=== PATIENT | female | born 1960 | race Caucasian/White ===

== ENCOUNTER → 2017-05-28 16:47 | Outpatient (CLI) | payer OTHER, SELFPAY ==
--- NOTE | 2017-05-28 16:53 | RAD_ITS ---
STUDY: X-RAY - RIGHT SHOULDER REASON FOR EXAM: Female, 56 years old. TECHNIQUE: view(s) of the shoulder. COMPARISON: None. FINDINGS: Normal glenohumeral articulation. Normal acromioclavicular joint. Normal acromion. Normal humeral head and visualized proximal humerus. The soft tissue structures are unremarkable. Normal visualized pulmonary apex. RAD/Shoulder min 2 Views IMPRESSION: Normal x-ray examination of the shoulder. No fracture Electronically Signed: Donald Wick, at 7:15 EDT Tel , Service support ,
== END ==
PROVIDERS: Family Provider Family Medicine; PCP Family Medicine; Visit Provider Family Medicine
DX: M75.21 Bicipital tendinitis, right shoulder (principal)
CPT/HCPCS: 73030

== ENCOUNTER 2017-07-11 13:34 | Emergency (ER) | payer OTHER, SELFPAY ==
[2017-07-11 13:35] VITALS: BP 151/95; PULSE 106; RESP 20; TEMP 36.2; BMI 26.9
[2017-07-11] MEDS: DiphenhydrAMINE 50 MG/ML Syringe 25 MG IV (14:58)
[2017-07-11] MEDS: Ketorolac 30 MG/ML Syringe IV (15:00)
[2017-07-11] MEDS: 0.9% Normal Saline 1,000 ML 999 ML IV (15:02)
[2017-07-11] MEDS: Metoclopramide 10 MG/2 ML Vial IV (15:02)
--- NOTE | 2017-07-11 15:20 | ED.VISSUMM ---
- ER Visit Summary Date of Service: 07/11/17 Chief Complaint: Headache History of Present Illness: The patient is a 56 F with a history of migraines. Patient states her headaches have been well controlled recently with Topamax. Patient states she woke yesterday morning with a generalized headache that progressed throughout the day. Pain does seem to be worse just above the right eye. She has had light sensitivity, nausea, and vomiting. She denies any recent head injury. She has had no recent URI symptoms. Physical Examination: Blood pressure is 151/95, temperature 97.1, heart rate 106, respiratory rate 20. Patient sitting in a darkened room. She is in no acute distress but does appear uncomfortable. Head and neck examination is grossly unremarkable. There is no meningismus. Heart is regular rate and rhythm. Lung sounds are clear. Abdomen is soft nontender. Neuro exam reveals no focal deficits. Test Results: [] Emergency Department Course and Treatment: Patient treated Toradol, Reglan, Benadryl, and IV fluids. On repeat evaluation she initially reported minimal improvement. Offered another round of medications and a CT scan she declines. She states that her head was not really hurting that bad when she came in. She feels hungry. She is able to tolerate Sprite and cookies. Patient reportedly has Zofran ODT at home but was afraid to try them as 1 of the side effects listed on the drug insert is headaches. She will be encouraged to try this and I will also write her for Phenergan suppositories if needed. She states that if she can keep her nausea under control at home her other headache medicine does seem to help her significantly. At this time she would prefer to just go home and sleep as opposed to any further medications in the emergency room. Treatment Plan: [] Disposition: Discharge Impression: Migraine This note was generated with Intercom dictation software. It may contain incorrect words, spelling, and punctuation that were not noted in review of the chart prior to signing ED Disposition - Plan for ED Patient: Chief Complaint: Headache Referrals: Jeanette Luo DO [Primary Care Provider] -
--- NOTE | 2017-07-11 16:38 | ED.DEP ---
ED Disposition - Plan for ED Patient: Disposition: Home or Assisted Living Chief Complaint: Headache Instructions: ED Headache Migraine Prescriptions: proMETHazine suppository [Phenergan Suppository] 25 mg RECTAL Q6H PRN PRN #6 suppos. PRN Reason: Nausea Referrals: Jeanette Luo DO [Primary Care Provider] - 3-5 Days if not improving
--- NOTE | 2017-07-11 16:45 | ED.DEP ---
ED Disposition - Plan for ED Patient: Disposition: Home or Assisted Living Chief Complaint: Headache Instructions: ED Headache Migraine Prescriptions: proMETHazine suppository [Phenergan Suppository] 25 mg RECTAL Q6H PRN PRN #6 suppos. PRN Reason: Nausea Ondansetron [Zofran Odt] 4 mg PO Q8H PRN PRN #10 tab PRN Reason: Nausea Referrals: Jeanette Luo DO [Primary Care Provider] - 3-5 Days if not improving
[2017-07-11 16:57] VITALS: BP 168/82; PULSE 81; RESP 14; O2SAT 98
== END 2017-07-11 16:58 | disposition home or self-care (01) ==
PROVIDERS: Emergency Provider Emergency Medicine; Family Provider Family Medicine; PCP Family Medicine
DX: G43.909 Migraine, unspecified, not intractable, without status migrainosus (principal); I10 Essential (primary) hypertension; Z79.02 Long term (current) use of antithrombotics/antiplatelets; Z79.899 Other long term (current) drug therapy
CPT/HCPCS: 96361; 96374; 96375; 99285; J7030; A4216

== ENCOUNTER → 2017-12-04 07:16 | Outpatient (CLI) | payer OTHER, SELFPAY ==
--- NOTE | 2017-12-04 07:23 | MRI_ITS ---
STUDY: MRI RIGHT SHOULDER REASON FOR EXAM: Female, 57 years old. Right shoulder pain. Decreased range of motion. TECHNIQUE: Standardized fat and water weighted pulse sequences were obtained in all 3 orthogonal planes. COMPARISON: Radiographs/. FINDINGS: Images are degraded by motion. There is supraspinatus tendinosis with tendon thickening, but without a demonstrated full-thickness tendon tear. There may be longitudinal partial tears. Normal infraspinatus tendon. Normal subscapularis tendon. Normal teres minor tendon. Normal supraspinatus muscle. Normal infraspinatus muscle. Normal subscapularis muscle. Normal teres minor muscle. There is mild osteoarthritis of the glenohumeral articulation. There is a small shoulder effusion. Normal humeral head and visualized proximal humerus. Normal biceps labral complex. Normal intracapsular long biceps tendon. There is labral degeneration with areas of fraying, but there is no demonstrated discrete labral tear. Normal capsulo- ligamentous complex. Normal rotator interval. There is mild osteoarthritis of the acromioclavicular articulation. There is a Type II morphology (curved), with a neutral orientation. There is minimal fluid distention of the subacromial bursa, consistent with mild subacromial-subdeltoid bursitis. Normal visualized coracohumeral and coracoacromial ligaments. Normal quadrilateral space. Normal axillary space. Normal deltoid muscle. Normal trapezius muscle. MRI/Upper Ext Joint Only(Routine) IMPRESSION: No evidence of full-thickness rotator cuff tear. There is supraspinatus tendon thickening and abnormal signal consistent with tendinosis. Cannot exclude small partial-thickness longitudinal tears. Mild effusion. Mild glenohumeral and acromioclavicular joint osteoarthritis. Subacromial bursitis/synovitis. Electronically Signed: Jason Iniguez MD at 23:35 EDT , Service support ,
== END ==
PROVIDERS: Family Provider Family Medicine; PCP Family Medicine; Referring Provider Family Medicine; Visit Provider Family Medicine
DX: M67.921 Unspecified disorder of synovium and tendon, right upper arm (principal)
CPT/HCPCS: 73221

== ENCOUNTER → 2017-12-11 07:17 | Outpatient (CLI) | payer OTHER, SELFPAY ==
[2017-12-11 08:34] LABS: AST(SGOT) 14 U/L (15-37); Alanine Aminotransfer ALT/SGPT 30 U/L (13-56); Albumin, Serum 4.2 g/dL (3.2-5.0); Alkaline Phosphatase 79 U/L (45-117); Bilirubin, Direct 0.19 mg/dL (0.00-0.30); Cholesterol 142 mg/dL (200); Globulin 3.2 g/dL (2.2-4.2); High Density Lipoprotein 66 mg/dL; Protein, Total 7.4 g/dL (6.4-8.2); Triglycerides 77 mg/dL; Very Low Density Lipoprotein 15 mg/dL (5-40)
== END ==
PROVIDERS: Family Provider Family Medicine; PCP Family Medicine; Referring Provider Internal Medicine Cardiovascular Disease; Visit Provider Internal Medicine Cardiovascular Disease
DX: E78.5 Hyperlipidemia, unspecified (principal); I25.10 Atherosclerotic heart disease of native coronary artery without angina pectoris
CPT/HCPCS: 36415; 80061; 80076

== ENCOUNTER 2018-01-19 16:30 | Outpatient (RCR) | payer OTHER, SELFPAY ==
--- NOTE | 2018-01-03 16:55 | HP.PTEVAL_ITS ---
Patient's Visit Information OLIVA VARELA is a 57 year old F referred to Physical Therapy by Cash Gonzalez with a diagnosis of Frozen Shoulder Right. Date of Evaluation: 01/03/18 Physical Therapist: Elisa Newton - Visit Plan Frequency: 2-3x /Week Duration: 4 Weeks Plan: Focus on ROM- Heat prior to PT - Subjective Subjective: Patient reports that in May she started having pains Dr. Luo marketing administrative assistant gave her a steroid injection which helped for 3 months- pulled muscle and would heal on its own. Insidious onset. 3 months later she felt she needed another injection (August) due to pain. She had another one worked great- 3 months later she was in so much pain but her insurance would not okay an injection. Now its to the point where she can't lift her arm. So she went to see [facility]- they did and MRI and x-ray of the shoulder which showed mild OA- no muscle involvement- diagnosed with frozen shoulder. Shoulder does not hurt but the biceps hurts. Wakes her up at night. Eases: nothing Agg: at work putting her arm up on the table to sit and type- had them get her a lower desk to try to help change her work station. Worst: 10/10 Best: 6/10. Always has pain. Describes the pain as twisting, dull ache. No pain that goes past the elbow. Does have mild pain in the wrist. No neck pain but some pulling. N/T in the hands sometimes- No FLOREZ, blurred vision but has had some dizziness- does get migraines. Left hand dominate. 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 PMhx: migraines, HTN, NM from imitrex, stent. Meds: lysinopril, plavix, asprin, prevastatin. Topomax - Objective Posture: FH, RS- severe guarding of the right UE. Gait: decreased arm swing. Observation: can not touch her hand to her side pocket of her jeans. Palpation: tender along deltoid, biceps and triceps. ROM: AROM: flexion: 40 degrees abd: 50 degrees, IR: neutral, ER: neutral PROM: flexion: 100 degrees, abd: 90 degrees, IR: 20 degrees, ER: 20 degrees with severe pain. ELbow: WNL, Wrist: WNL, Finger dexterity: WNL. Strength: not tested secondary to pain. Special Test: not performed secondary to poor ROM and pain - Goals Goal 1:: Patient will be I with HEP and progression Goal Time Frame: 4-6 Weeks Goal 2:: Patient will demo full AROM of the right shoulder Goal Time Frame: 4-6 Weeks Goal 3:: Patient will maintain proper posture t/o tx session to demo increased scap s/s. Goal Time Frame: 4-6 Weeks Goal 4:: Patient will report sleeping through the night Goal Time Frame: 4-6 Weeks - Rehabilitation Potential Physical Therapy Diagnosis: Patient presents with hypomobility- she has decreased ROM, strength and muscular endurance leading to poor posture and increased pain with ADL's. Rehabilitation Potential: Fair - Anticipated Interventions Patient/Client Instruction: Educate patient on: Benefits of Fitness Program Therapeutic Exercise to Include: Strength training, Endurance training, Body mechanics, Postural training, Flexibilty training, Passive ROM, Active ROM, Scapular Strength/Stabilization For the Purpose of:: To increase ROM, To improve muscle performance and motor function TENS: Yes Cryotherapy (ice pack, ice massage): Yes Thermo therapy (hot pack): Yes Ultrasound (thermal/non thermal): Yes Thank you for the opportunity to evaluate your patient. For Medicare and Medicare HMO plans, please review the plan of care and approve it. It will need to be FAXED BACK to us at [phone] for Medicare purposes. Please let me know if there are questions or concerns regarding this plan of care. Physician Signature: Date:
--- NOTE | 2018-06-17 08:10 | HP.PTDCNRP_ITS ---
HP - Discharge Summary (1) - Patient Information OLIVA VARELA was seen in my office for initial evaluation on 01/03/18. The following Plan of Care was established for this patient: Initial Frequency: 2-3x /Week Initial Duration: 4 Weeks - Anticipated Interventions Patient/Client Instruction: Educate patient on: Benefits of Fitness Program Therapeutic Exercise to Include: Strength training, Endurance training, Body mechanics, Postural training, Flexibilty training, Passive ROM, Active ROM, Scapular Strength/Stabilization For the Purpose of:: To increase ROM, To improve muscle performance and motor function TENS: Yes Cryotherapy (ice pack, ice massage): Yes Thermo therapy (hot pack): Yes Ultrasound (thermal/non thermal): Yes This patient was last seen in our office . Pertinent comments regarding their Physical therapy will appear below: Patient has not attended physical therapy in over 30 days and is appropriate for discharge. Follow up with MD as appropriate. At this point I will be discontinuing this patient from physical therapy. I wo uld be happy to see this patient again in the future if found appropriate by the physician. Thank you! Elisa Newton DPT
== END 2018-01-19 19:00 | disposition home or self-care (01) ==
LOC: PT 16:30
PROVIDERS: Family Provider Family Medicine; PCP Family Medicine; Referring Provider Orthopaedic Surgery; Visit Provider Orthopaedic Surgery
DX: M75.01 Adhesive capsulitis of right shoulder (principal); M25.511 Pain in right shoulder; M17.11 Unilateral primary osteoarthritis, right knee
CPT/HCPCS: 97014; 97110; 97140; 97162; G0283

== ENCOUNTER → 2018-12-16 09:05 | Outpatient (CLI) | payer OTHER, SELFPAY ==
[2017-12-16 16:03] VITALS: BMI 26.9
[2018-12-16 10:08] LABS: AST(SGOT) 13 U/L (15-37); Alanine Aminotransfer ALT/SGPT 19 U/L (13-56); Albumin, Serum 3.9 g/dL (3.2-5.0); Alkaline Phosphatase 68 U/L (45-117); Bilirubin, Direct 0.18 mg/dL (0.00-0.30); Cholesterol 116 mg/dL (200); Globulin 2.8 g/dL (2.2-4.2); High Density Lipoprotein 54 mg/dL; Protein, Total 6.7 g/dL (6.4-8.2); Triglycerides 109 mg/dL; Very Low Density Lipoprotein 22 mg/dL (5-40)
== END ==
PROVIDERS: Family Provider Family Medicine; PCP Family Medicine; Referring Provider Physician Assistant Medical; Visit Provider Physician Assistant Medical
DX: E78.5 Hyperlipidemia, unspecified (principal)
CPT/HCPCS: 36415; 80061; 80076

== ENCOUNTER 2019-01-02 15:03 | Emergency (ER) | payer OTHER, SELFPAY ==
[2018-12-20 07:46] VITALS: BMI 25.2
[2019-01-02 15:05] VITALS: BP 145/100; PULSE 61; RESP 18; TEMP 36.8; O2SAT 95; BMI 25.2
--- NOTE | 2019-01-02 15:45 | ED.VIS.HA ---
History of Present Illness Chief Complaint: Headache Narrative: Patient presenting for evaluation secondary to a headache. Patient has a underlying history of migraine headaches. She is on Topamax for these for a daily controller medication, and has as needed Reglan and Toradol that she can take at home. Patient typically was getting these headaches about once a month, but recently has been getting them almost once weekly. She has had this headache since Wednesday. She reports that she typically wakes up with these headaches, this headache was no different. It is a generalized throbbing type sensation that was associated with significant nausea and vomiting over the weekend which has since resolved, and some photophobia and phonophobia. Patient denies recent head injuries, neck stiffness, skin rashes, or fevers. Review of systems otherwise negative. Past Medical History - Allergies and Home Meds Allergies/Adverse Reactions: Allergies prochlorperazine [From Compazine] Allergy (Verified 01/02/19 15:05) Other prochlorperazine edisylate [From Compazine] Allergy (Verified 01/02/19 15:05) Other prochlorperazine maleate [From Compazine] Allergy (Verified 01/02/19 15:05) Other Primary Care Physician: Jeanette Luo DO [Primary Care Provider] - Past Medical History: - - Migraine headaches, coronary artery disease Smoking Status: Never smoker Review of Systems All systems negative except as indicated General: Denies: Chills, Fever, Sweats Eyes: Denies: Visual changes - bilaterally ENT: Denies: Rhinorrhea, Sore throat Cardiovascular: Denies: Chest pain, Palpitations Respiratory: Denies: Dyspnea, Cough, Dyspnea on exertion Gastrointestinal: Reports: Nausea, Vomiting Genitourinary: Denies: Dysuria, Hematuria, Frequency Musculoskeletal: Denies: Back pain, Extremity Pain Skin: Denies: Rash, Wounds Neurological: Reports: Headache Physical Exam Vital Signs/Narrative: Vital Signs Temp Pulse Resp BP Pulse Ox 01/02/19 15:05 98.2 F 61 18 145/100 H 95 Inital Vital Signs reviewed: Yes General: Well nourished, Well developed Head: NC, AT. Negative for: Temporary Artery Tenderness, Sinus Tenderness Eyes: Perrl, EOMI. Negative for: Pale conjunctiva, Scleral icterus ENT: Moist mucous membranes, No rhinorrhea Neck: Supple, No Lymphadenopathy, No JVD, Nontender, No Meningismus Cardiovascular: Regular rate, Regular rhythm, No murmurs Respiratory: No distress, CTA bilaterally, Chest nontender Abdomen: Soft, Nontender, Nondistended, Normal bowel sounds Back: Nontender, Normal Inspection Extremities: Nontender, No edema Skin: Normal color, No rash Neuro: Alert, Oriented x3, Cranial nerves II-XII grossly intact, Normal Strength, Normal Sensation, Normal DTR, Normal Gait Psychological: Normal affect Diagnostic/Tx/Re-eval - Medical Decision Making Patient presented secondary to a migraine headache that was refractory to home treatments in the setting of having migraine headaches. She has no abnormal neurologic findings and no red flag signs or symptoms that would necessitate imaging. This does seem consistent with her normal migraines. Patient was discussed with Dr. Allen at her request. He did states that he feels the patient is okay for treatment with valproate and Solu-Medrol. Patient was given a liter of saline, Toradol, valproate, and Solu-Medrol. Throughout observation. In the emergency department, she did develop significant symptomatic improvement and repeat evaluation of the patient at 1750 shows her to have open eyes and to be improved symptomatically and objectively. At this point I feel the patient is safe and appropriate for discharge. Patient was discharged in improved condition. Disposition: Home ED Disposition - Plan for ED Patient: Disposition: Home or Assisted Living Diagnosis: Migraine headache Instructions: ED, Migraine (Classical) Referrals: Ricky Pacheco MD [STAFF PHYSICIAN] -
[2019-01-02] MEDS: 0.9% Normal Saline 1,000 ML 999 ML IV (15:57)
[2019-01-02] MEDS: MethylPREDNISolone 125 MG/2 ML Vial IV (15:57)
[2019-01-02] MEDS: Ketorolac 30 MG/ML Syringe IV (15:59)
[2019-01-02 18:11] VITALS: RESP 18
== END 2019-01-02 18:23 | disposition home or self-care (01) ==
PROVIDERS: Emergency Provider Emergency Medicine; Family Provider Family Medicine; PCP Family Medicine
DX: G43.909 Migraine, unspecified, not intractable, without status migrainosus (principal); I25.10 Atherosclerotic heart disease of native coronary artery without angina pectoris; Z79.899 Other long term (current) drug therapy; Z79.02 Long term (current) use of antithrombotics/antiplatelets; Z79.82 Long term (current) use of aspirin; Z88.8 Allergy status to other drugs, medicaments and biological substances
CPT/HCPCS: 96361; 96365; 96375; 99283; J7030; A4216

== ENCOUNTER → 2019-01-13 06:08 | Outpatient (CLI) | payer OTHER, SELFPAY ==
[2018-12-20 07:46] VITALS: BMI 25.2
[2019-01-02 15:05] VITALS: BMI 25.2
--- NOTE | 2019-01-13 10:11 | STRESSREP ---
Stress Test Report Exercise myocardial perfusion stress test. 58-year-old lady with a history of chest pain. Resting EKG demonstrates normal sinus rhythm with a rate of 64 bpm normal intervals noted resting blood pressures 124/90 mmHg. The patient exercised according to regular Quentin protocol for total duration of 6 minutes the maximum heart rate was 160 bpm which was 99% of maximum predicted heart rate the maximum workload was 7 metabolic equivalents. At rest there were no ST or T wave changes noted suggest ischemia peak exercise upsloping ST changes only were noted with no meet the criteria for ischemia. No clinical angina was noted the test was terminated due to the target heart rate being achieved. Resting blood pressures 124/90 with a peak blood pressure 152/94. Myocardial perfusion protocol. 11.0 mCi of technetium 99m sestamibi was injected at rest. Patient exercised according to regular Quentin protocol. At peak exercise 33.0 mCi of technetium 99m sestamibi was injected stress images obtained stress and rest images were reconstructed and compared in the short axis vertical and horizontal long axis. Gated images were also obtained per Perfusion SPECT analysis: Review of the stress images demonstrate normal uptake of tracer noted in all the rest of the myocardium the resting images similar demonstrate normal uptake of tracer noted in all the rest of the myocardium. No evidence of reversibility or no suggest ischemia. Gated SPECT analysis: The gated ejection fraction is noted to be 80%. Conclusion: Normal exercise myocardial perfusion stress test at a moderate workload. Preserved ejection fraction.
== END ==
PROVIDERS: Family Provider Family Medicine; PCP Family Medicine; Referring Provider Internal Medicine Cardiovascular Disease; Visit Provider Internal Medicine Cardiovascular Disease
DX: Z95.5 Presence of coronary angioplasty implant and graft (principal)
CPT/HCPCS: 78452; 93017; A9500; A4216

== ENCOUNTER → 2019-12-23 07:25 | Outpatient (CLI) | payer BC, SELFPAY ==
[2019-12-23 09:13] LABS: AST(SGOT) 13 U/L (15-37); Alanine Aminotransfer ALT/SGPT 23 U/L (13-56); Alkaline Phosphatase 81 U/L (45-117); Cholesterol 146 mg/dL (200); Globulin 3.2 g/dL (2.2-4.2); High Density Lipoprotein 76 mg/dL; Protein, Total 7.2 g/dL (6.4-8.2); Triglycerides 93 mg/dL; Very Low Density Lipoprotein 19 mg/dL (5-40)
== END ==
PROVIDERS: PCP Family Medicine; Referring Provider Physician Assistant Medical; Visit Provider Physician Assistant Medical
DX: E78.5 Hyperlipidemia, unspecified (principal)
CPT/HCPCS: 36415; 80061; 80076

== ENCOUNTER 2020-04-24 07:30 | Outpatient (RCR) | payer BC, SELFPAY ==
[2019-12-26 07:30] VITALS: BMI 25.9
--- NOTE | 2020-03-27 17:00 | HP.PTEVAL_ITS ---
Patient's Visit Information OLIVA VARELA is a 59 year old F referred to Physical Therapy by Dr. Jory Sher MD with a diagnosis of Frozen shoulder. Date of Evaluation: 03/27/20 Physical Therapist: Elisa Newton DPT - Visit Plan Frequency: 2x /Week Duration: 4 Weeks Plan: decreased ROM with empty end feel. PT to increase ROM and improve posture. IE HEP: cane flexion, ext, abduction ER, pendulum - Subjective L shoulder started hurting in December 2019, just thought it was heavy lifting from work. Went to [facility] last week. 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 L handed. pain: 4/10 and is in front shoulder/arm. is more painful along bicep to elbow, hurts more at night. feels like a bad bruise and throbbing, sometimes can be sharp. worst: 8/10 filing at work, overhead movement. better: does have 0/10, sitting with arm in right position resting on pillow, heat. denies numbness. some tingling in fingers. neck: could feel it in upper trap last week but does not feel that currently- if she overdoes it. sleep: throbbing pain at night , sleep on back. PMHx: stent, migraines, R frozen shoulder in 2018. Meds: none, tylenol if needed - Objective Posture: FH,RS unable to maintain. Gait: decreased arm swing with L UE, holding water bottle. Palpation: tender along infraspinatus. AROM Flexion: 95 after cane 125 abduction 60, after can 100 IR elbow: flex/ext:WFL. empty end feel with PROM scaption, flexion. PROM: flexion 125, abduction 125, ER 30 IR 8. 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 Scap: fair minus - Goals Goal 1:: Patient will be I with HEP and progression Goal Time Frame: 4-6 Weeks Goal 2:: Patient will demonstrate shoulder ROM in all planes to WFL in order to perform I ADLs. Goal Time Frame: 4-6 Weeks Goal 3:: Patient will report 0/10 pain for 1 week in order to improve I functional mobility Goal Time Frame: 4-6 Weeks Goal 4:: Patient will maintain proper posture throughout treatment session in order to perform I functional mobility Goal Time Frame: 4-6 Weeks - Rehabilitation Potential Physical Therapy Diagnosis: Pt presents with decreased ROM, strength, flexbility impacting ability to perform I functional mobility tasks. Rehabilitation Potential: Good - Anticipated Interventions Patient/Client Instruction: Educate patient on: Plan of Care For the Purpose of:: To improve muscle performance and motor function Therapeutic Exercise to Include: Strength training, Power training, Endurance training, Coordination, Agility training, Body mechanics, Postural training, Flexibilty training, Passive ROM, Active ROM, Scapular Strength/Stabilization For the Purpose of:: To improve performance and independence with ADL's TENS: Yes Cryotherapy (ice pack, ice massage): Yes Thermo therapy (hot pack): Yes Thank you for the opportunity to evaluate your patient. For Medicare and Medicare HMO plans, please review the plan of care and approve it. It will need to be FAXED BACK to us at [phone] for Medicare purposes. For Medicare only, by signing this I certify the plan of care. Please let me know if there are questions or concerns regarding this plan of care. Physician Signature: Date:
--- NOTE | 2020-04-24 10:18 | HP.PTDCSUM_ITS ---
It has been my pleasure to treat OLIVA VARELA referred by Dr. Jory Sher MD, with the diagnosis of Frozen shoulder for a total of 6 visit(s). Discharge Date: Please see the following information for a summary of their discharge status. Subjective: Pt reports that her shoulder is doing good. Pt reports the only limitation is functional IR. Pt reports that she has not had any pain. left shoulder Pain Intensity (Out of 10): 0 % Improvement: 80 Objective/Function: Posture: FH,RS unable to maintain. Gait: decreased arm swing with L UE, holding water bottle. Palpation: tender along infraspinatus. AROM Flexion: 130 abduction 120 IR: belt line elbow: flex/ext:WFL. 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 Scap: fair Goal 1:: Patient will be I with HEP and progression Goal Progress: Goal Met Goal 2:: Patient will demonstrate shoulder ROM in all planes to WFL in order to perform I ADLs. Goal Progress: Goal Met Goal 3:: Patient will report 0/10 pain for 1 week in order to improve I functional mobility Goal Progress: Goal Met Goal 4:: Patient will maintain proper posture throughout treatment session in order to perform I functional mobility Goal Progress: Progressing Plan: Pt to be d/c with I HEP, encouraged to contact with questions and concerns If there are questions or concerns regarding this patient's physical therapy, please feel free to call me at [phone]. Thank you for the referral of this patient. Sincerely, Elisa Newton DPT
== END 2020-04-24 10:43 | disposition home or self-care (01) ==
LOC: PT 07:30
PROVIDERS: PCP Family Medicine; Referring Provider Family Medicine; Visit Provider Family Medicine
DX: M67.912 Unspecified disorder of synovium and tendon, left shoulder (principal)
CPT/HCPCS: 97110; 97140; 97162; 97164; 97530

== ENCOUNTER 2020-09-17 19:08 | Emergency (ER) | payer BC, SELFPAY ==
[2019-12-26 07:30] VITALS: BMI 25.9
[2020-09-17 19:08] VITALS: BP 154/104; PULSE 111; RESP 20; TEMP 36; O2SAT 97; BMI 25.6
[2020-09-17] MEDS: Metoclopramide 10 MG/2 ML Vial IV (19:32)
[2020-09-17] MEDS: Ketorolac 30 MG/ML Syringe IV (19:32)
[2020-09-17] MEDS: DiphenhydrAMINE 50 MG/ML Syringe 25 MG IV (19:33)
--- NOTE | 2020-09-17 19:33 | EDS_ITS ---
HPI History of Present Illness Chief Complaint: Headache Informant: patient and spouse/S.O. Onset/Context/Timing Onset: Days (3 days) Context: Gradual Timing: Waxes and wanes Quality -Headache: Positive for Similar Prior Headaches and Throbbing Current Severity: Severe Maximum Severity: Severe Associated Symptoms/Injury Associated Symptoms: Positive for Nausea, Vomiting and Photophobia Narrative Narrative: Patient presents with 3-day history of migraine headache. states that she will get migraines it typically will last 3 days at a time. By day 3 she has such significant nausea and vomiting that she cannot keep her meds down at home. This headache started 3 days ago. It is worse in the frontal and right temporal region. This is a typical pattern for her migraines. She does r eport light sensitivity, nausea, and vomiting. No recent head injury. She does report a slight runny nose but no other URI symptoms. No fever or chills. [facility] Medical History (Updated 09/17/20 @ 21:[address] Patricia Mcmahon MD) Atherosclerotic heart disease of [place] coronary artery without angina pectoris Essential (primary) hypertension History of ST elevation myocardial infarction (STEMI) (01/11/11) HLD (hyperlipidemia) Migraines Home Medications lisinopril 40 mg PO DAILY 06/25/15 [History Last Taken Unknown] aspirin 81 mg tablet,delayed release 81 mg PO DAILY 12/20/18 [History Last Taken Unknown] clopidogrel 75 mg tablet 75 mg PO DAILY #90 tab 12/14/19 [Rx Last Taken Unknown] pravastatin 80 mg tablet 80 mg PO QHS #90 tab 12/26/19 [Rx Last Taken Unknown] topiramate 100 mg tablet 100 mg PO BID tab 12/26/19 [History Last Taken Unknown] Allergy/AdvReac Type Severity Reaction Status Date / Time prochlorperazine Allergy Other Verified 12/26/19 07:30 [From Compazine] prochlorperazine edisylate Allergy Other Verified 12/26/19 07:30 [From Compazine] prochlorperazine maleate Allergy Other Verified 12/26/19 07:30 [From Compazine] Family History Father Cancer Mother Colon cancer Surgical History History of coronary artery stent placement (01/11/11) History of hysterectomy Social History Smoking Status: Never smoker ROS ROS ED Constitutional Constitutional ED: Denies chills or fever(s) Eyes Eyes: Denies change in vision ENT ENT ED: Reports rhinorrhea; Denies sore throat Cardiovascular Cardiovascular: Denies chest pain Respiratory/Chest Respiratory/Chest: Denies cough or dyspnea Gastrointestinal Gastrointestinal: Reports nausea and vomiting; Denies abdominal pain or diarrhea Genitourinary Genitourinary ED: Denies dysuria Musculoskeletal Musculoskeletal: Denies back pain or neck pain Integumentary Denies rash Neurologic Neurologic: Reports headache(s); Denies paresthesias or weakness Psychiatric Psychiatric: Denies anxiety or depression Allergic/Immunologic Allergic/Immunologic ED: Denies urticaria EXAM Physical Exam Const Vital Signs: 09/17/20 19:08 09/17/20 20:51 Temperature 96.8 F L Temperature Source Temporal Pulse Rate 111 H 71 Respiratory Rate 20 H 16 Blood Pressure 154/104 H 157/91 H Blood Pressure Mean 120 113 Pulse Ox 97 99 Oxygen Delivery Method Room Air Positive well nourished and well developed General Appearance ED: well developed HEENT Reports normocephalic and head/scalp atraumatic Eyes PERRL and EOMs intact bilaterally Neck supple Chest Wall inspection of chest normal and palpation of chest normal Resp normal respiratory effort and clear to auscultation bilaterally Cardio regular rate and regular rhythm GI normal to inspection, nondistended, normoactive bowel sounds Palpation: soft Extremity normal to inspection Neuro oriented x3 and no sensory deficits noted Sensorium / Orientation: alert Motor Exam: strength 5/5 throughout Psych mental status grossly normal Skin no rashes or lesions noted MDM MDM MDM Narrative Medical decision making narrative: Patient was given Toradol, Reglan, Benadryl, IV fluids. Treatment and Re-Evaluation Comments:: On repeat evaluation patient states her headache is much improved. She is comfortable going home with her . Discharge Plan Triage Chief Complaint: Headache ED Provider: Patricia Mcmahon Dx/Rx/DC Orders Clinical Impression: Migraine Instructions: ED, Migraine (Classical) Prescriptions: No Action aspirin [Adult Low Dose Aspirin] 81 mg tablet,delayed release (DR/EC) 81 mg PO DAILY RF: 0 topiramate 100 mg tablet 100 mg PO BID RF: 0 pravastatin 80 mg tablet 80 mg PO QHS Qty: 90 RF: 4 lisinopril 40 MG tablet 40 mg PO DAILY RF: 0 clopidogrel 75 mg tablet 75 mg PO DAILY Qty: 90 RF: 3 Primary Care Provider: Jeanette Luo Referrals: Jeanette Luo DO [Primary Care Provider] - As Needed Disposition Disposition: Home, Self Care
[2020-09-17] MEDS: 0.9% Normal Saline 1,000 ML 999 ML IV (19:39)
[2020-09-17 20:51] VITALS: BP 157/91; PULSE 71; RESP 16; O2SAT 99
[2020-09-17 21:32] VITALS: BP 157/91; PULSE 71; RESP 16; O2SAT 99
== END 2020-09-17 21:33 | disposition home or self-care (01) ==
PROVIDERS: Emergency Provider Emergency Medicine; PCP Family Medicine
DX: G43.909 Migraine, unspecified, not intractable, without status migrainosus (principal); I25.10 Atherosclerotic heart disease of native coronary artery without angina pectoris; I10 Essential (primary) hypertension; E78.5 Hyperlipidemia, unspecified; Z79.02 Long term (current) use of antithrombotics/antiplatelets; Z79.82 Long term (current) use of aspirin; Z79.899 Other long term (current) drug therapy; I25.2 Old myocardial infarction; Z95.5 Presence of coronary angioplasty implant and graft
CPT/HCPCS: 96361; 96374; 96375; 99283; J7030; A4216

== ENCOUNTER → 2020-12-14 08:49 | Outpatient (CLI) | payer BC, SELFPAY ==
[2020-12-14 09:36] LABS: AST(SGOT) 18 U/L (15-37); Alanine Aminotransfer ALT/SGPT 23 U/L (13-56); Albumin, Serum 4.2 g/dL (3.2-5.0); Alkaline Phosphatase 80 U/L (45-117); Bilirubin, Direct 0.25 mg/dL (0.00-0.30); Cholesterol 152 mg/dL (200); Globulin 3.1 g/dL (2.2-4.2); High Density Lipoprotein 76 mg/dL; Protein, Total 7.3 g/dL (6.4-8.2); Triglycerides 81 mg/dL; Very Low Density Lipoprotein 16 mg/dL (5-40)
== END ==
PROVIDERS: PCP Family Medicine; Visit Provider Physician Assistant Medical
DX: E78.00 Pure hypercholesterolemia, unspecified (principal); E78.5 Hyperlipidemia, unspecified
CPT/HCPCS: 36415; 80061; 80076

== ENCOUNTER → 2021-12-17 | Outpatient (CLI) | payer BC, SELFPAY ==
[2021-12-17 07:34] LABS: AST(SGOT) 19 U/L (15-37); Alanine Aminotransfer ALT/SGPT 26 U/L (13-56); Albumin, Serum 4.3 g/dL (3.2-5.0); Alkaline Phosphatase 77 U/L (45-117); Bilirubin, Direct 0.27 mg/dL (0.00-0.30); Cholesterol 144 mg/dL (200); Globulin 3.1 g/dL (2.2-4.2); High Density Lipoprotein 75 mg/dL; Protein, Total 7.4 g/dL (6.4-8.2); Triglycerides 78 mg/dL; Very Low Density Lipoprotein 16 mg/dL (5-40)
== END | disposition home or self-care (01) ==
LOC: LAB 06:32
PROVIDERS: PCP Family Medicine; Referring Provider Physician Assistant Medical; Visit Provider Physician Assistant Medical
DX: E78.00 Pure hypercholesterolemia, unspecified (principal)
CPT/HCPCS: 36415; 80061; 80076

== ENCOUNTER → 2022-02-10 | Outpatient (CLI) | payer BC, SELFPAY ==
--- NOTE | 2022-02-10 16:08 | US_ITS ---
INDICATION: PELVIC PAIN- lower abd pain EXAMINATION: Ultrasound US Kidney(s) complete (eg, kidneys and bladder) TECHNIQUE: Milligan scale and color doppler images were obtained of the kidneys. COMPARISON: None. FINDINGS: RIGHT KIDNEY: 10.6 x 5.1 x 3.6 cm. There is no hydronephrosis. 0.8 x 1.0 x 0.6 cm echogenic upper pole nodule. LEFT KIDNEY: 9.7 x 4.8 x 6.1 cm. There is no hydronephrosis. No shadowing calculus, focal lesion or perinephric collection is demonstrated. URINARY BLADDER: No acute abnormality. Both urinary jets visualized. 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 Otherwise negative exam. Electronically Signed: Jayden Farrell MD at 16:49 EST ,
== END | disposition home or self-care (01) ==
LOC: US 16:04
PROVIDERS: PCP Family Medicine; Visit Provider Family Medicine
DX: R10.2 Pelvic and perineal pain (principal)
CPT/HCPCS: 76770

== ENCOUNTER 2022-02-13 20:38 | Emergency (ER) | payer BC, SELFPAY ==
[2022-02-13 20:39] VITALS: BP 138/99; PULSE 84; RESP 16; TEMP 36.4; O2SAT 100; BMI 25.7
[2022-02-13 21:06] LABS: Absolute Lymphocyte Count 1.87 X10^3/uL (0.83-4.51); Absolute Neutrophil Count 2.8 X10^3/uL (2.0-7.7); Basophil# 0.02 X10^3/uL; Basophil% 0.4 % (0-1); Eosinophil# 0.08 X10^3/uL; Eosinophils% 1.5 % (0-5); Hematocrit 41.7 % (37-47); Hemoglobin 14.2 g/dL (12.0-15.0); Lymphocyte # 1.87 X10^3/ul (0.83-4.51); Lymphocyte % 35.4 % (19-41); Mean Corp Hgb Conc 34.1 g/dL (32-36); Mean Corpuscular Hgb 31.8 pg (27.0-32.0); Mean Corpuscular Volume 93.5 fL (81-99); Mean Platelet Vol. 9.3 fl (6.2-12.0); Monocyte# 0.46 X10^3/uL; Monocyte% 8.7 % (0-10); NRBC Flagged by Analyzer 0 % (0-5); Neutrophil # 2.84 X10^3/uL (2.7-7.7); Neutrophil % 53.8 % (47-70); Platelet Count 270 K/mm3 (150-450); RBC Distribution Width CV 12.1 % (11.6-14.6); RBC Distribution Width SD 41.7 fl (35.1-43.9); Red Blood Count 4.46 M/mm3 (4.2-5.4); White Blood Count 5.3 K/mm3 (4.4-11.0)
[2022-02-13 21:25] LABS: Anion Gap 5 (5-15); BUN 9 mg/dL (7-18); BUN/Creat Ratio 13.7 RATIO (10-20); Calcium,Total 9.5 mg/dL (8.5-10.1); Chloride 112 mmol/L (98-107); Creatinine, Serum 0.66 mg/dL (0.55-1.02); EST Glomerular Filtration Rate 97 mL/min (>60); Est Glom Filt Rate - Afr Amer 118 mL/min (>60); Glucose 100 mg/dL (74-106); Potassium 3.1 mmol/L (3.5-5.1); Sodium Level 143 mmol/L (136-145)
--- NOTE | 2022-02-14 00:25 | CT_ITS ---
STUDY: CT ABDOMEN AND PELVIS WITH CONTRAST REASON FOR EXAM: Female, 61 years old patient with abdominal pain. RADIATION DOSAGE (If Supplied By Facility): CTDIvol = ( 9.41 ) mGy, DLP = ( 431.46 ) mGycm TECHNIQUE: Transaxial images were obtained from the dome of the diaphragm to the symphysis pubis without oral contrast. 75 mL of Isovue-370 was administered. Sagittal and coronal images were reconstructed. Individualized dose optimization techniques were used for this CT. COMPARISON: Prior comparison studies are not available for review at this time. FINDINGS: The visualized lung bases are unremarkable. The visualized portions of the heart are within normal limits. Normal liver. Normal gallbladder and extrahepatic biliary system. Normal spleen. Normal pancreas. Normal bilateral adrenal glands. Normal right kidney. Normal left kidney. Normal visualized stomach. There is no evidence for dilated bowel, ascites or pneumoperitoneum. Normal colon. There is non-visualization of the appendix. Normal abdominal aorta. There is venous distention of the inferior vena cava (IVC). Normal retroperitoneum. Normal urinary bladder. There is absence of the uterus consistent with a prior hysterectomy. Normal abdominal wall. There is narrowing of L5-S1 disc space consistent with degenerative disc disease. CT/Abdomen/Pelvis W IV Cont ONLY IMPRESSION: No CT evidence of acute abnormalities. Electronically Signed: Shaina Gonzalez MD at 1:41 EST ,
[2022-02-14 00:33] VITALS: RESP 18
[2022-02-14 00:40] LABS: Mucous, Urine 0 SEEN /hpf (<or=2+); Red Blood Cells-Urine 0 SEEN /hpf (0-5); Squamous Epithelial Cells - UA 0 SEEN /hpf (5-10); White Blood Cells 0 SEEN /hpf (0-5)
[2022-02-14 00:41] LABS: Color, Urine Yellow (Yellow); Glucose, Dipstick Normal (Normal); Ketone-Dipstick Negative (Negative); Leukocyte Esterase-Dipstick 25 /ul (Negative); Nitrite-Dipstick Negative (Negative); Occult Blood-Urine Negative /ul (Negative); Protein-Dipstick Negative (Negative); Urine Bilirubin Dipstick Negative (Negative); Urine Clarity Sl. Cloudy (Clear); Urine Urobilinogen Normal (Normal)
[2022-02-14] MEDS: 0.9% Normal Saline 1,000 ML 999 ML IV (00:41)
[2022-02-14 00:49] LABS: Amorphous Sediment 3+; Bacteria 1+ /hpf (None Seen)
--- NOTE | 2022-02-14 02:06 | EDS_ITS ---
HPI History of Present Illness Chief Complaint: Abd Pain Narrative Narrative: Patient is a 61-year-old female with a past medical history of hypertension and hyperlipidemia. She states she has been having lower abdominal pain for approximately 6 to 8 weeks. She states that she has been following up as an outpatient secondary to this. She reports that she had a recent ultrasound that showed a possible lesion on her kidney and they recommended she receive a CT scan. Patient states that her is doing waiting for CAT scan for multiple weeks and she is concerned that it will take just as long for her to have her scan. She states that she feels like the pain is worsened since the recent ultrasound and secondary to this comes in for evaluation. Patient denies any fevers or chills nausea vomiting diarrhea dysuria or constipation. [facility] Medical History Atherosclerotic heart disease of [place] coronary artery without angina pectoris Essential (primary) hypertension History of ST elevation myocardial infarction (STEMI) (01/11/11) HLD (hyperlipidemia) Migraines Home Medications lisinopril 40 mg tablet 40 mg PO DAILY 06/25/15 [History Last Taken Unknown] aspirin 81 mg tablet,delayed release (Adult Low Dose Aspirin) 81 mg PO DAILY 12/20/18 [History Last Taken Unknown] topiramate 100 mg tablet 100 mg PO BID 12/26/19 [History Last Taken Unknown] rimegepant 75 mg disintegrating tablet (Nurtec ODT) 75 mg PO ONCE PRN Migraine Headache 11/22/20 [History Last Taken Unknown] clopidogrel 75 mg tablet 75 mg PO DAILY #90 tabs 11/19/21 [Rx Last Taken Unknown] pravastatin 80 mg tablet 80 mg PO QHS #90 tabs 01/02/22 [Rx Last Taken Unknown] sulfamethoxazole 800 mg-trimethoprim 160 mg tablet (Bactrim DS) 1 tab PO BID 5 days #10 tabs 02/14/22 [Rx Last Taken Unknown] Allergy/AdvReac Type Severity Reaction Status Date / Time prochlorperazine Allergy Other Verified 02/14/22 00:34 [From Compazine] prochlorperazine edisylate Allergy Other Verified 02/14/22 00:34 [From Compazine] prochlorperazine maleate Allergy Other Verified 02/14/22 00:34 [From Compazine] Family History Father Cancer Mother Colon cancer Surgical History History of coronary artery stent placement (01/11/11) History of hysterectomy Social History Smoking Status: Never smoker ROS ROS ED Constitutional Constitutional ED: Denies chills or fever(s) Eyes Eyes: Denies change in vision ENT ENT ED: Denies sore throat Cardiovascular Cardiovascular: Denies chest pain Respiratory/Chest Respiratory/Chest: Denies cough or dyspnea Gastrointestinal Gastrointestinal: Reports abdominal pain; Denies diarrhea, nausea or vomiting Genitourinary Genitourinary ED: Denies dysuria or hematuria Musculoskeletal Musculoskeletal: Denies myalgias Integumentary Denies rash Neurologic Neurologic: Denies headache(s) Hematologic/Lymphatic Hematologic/Lymphatic: Denies easy bleeding or easy bruising EXAM Physical Exam Const Vital Signs: 02/13/22 20:39 02/14/22 00:33 02/14/22 02:12 Temperature 97.6 F L Temperature Source Temporal Pulse Rate 84 Respiratory Rate 16 18 18 Blood Pressure 138/99 H Blood Pressure Mean 112 Pulse Ox 100 Oxygen Delivery Method Room Air Room Air Room Air 02/14/22 02:12 Temperature Temperature Source Pulse Rate Respiratory Rate 18 Blood Pressure Blood Pressure Mean Pulse Ox Oxygen Delivery Method Positive well nourished and well developed General Appearance ED: well developed HEENT Reports moist mucous membranes Eyes PERRL and EOMs intact bilaterally General Eye ED: Negative for scleral icterus Neck supple Resp normal respiratory effort and clear to auscultation bilaterally Cardio regular rate and regular rhythm Rate: other Other Details: Radial pulses are plus 2 out of 4 bilaterally are equal and symmetric GI non-distended GI Narrative: Abdomen is soft and nondistended with normoactive bowel sounds. There is mild pain with palpation in the lower midline of the abdomen without voluntary guarding or rigidity. No pulsatile mass or fluid wave Auscultation: normoactive bowel sounds Palpation: soft Back/Spine no CVA tenderness Extremity normal to inspection Neuro oriented x3 and CN's II-XII intact bilaterally Sensorium / Orientation: alert Psych mental status grossly normal Skin no rashes or lesions noted General Skin Exam: Negative for jaundice MDM MDM MDM Narrative Medical decision making narrative: Patient presented to the ER hypertensive but has a past medical history of this and otherwise with stable vital. She reported a history of abdominal discomfort for 6 to 8 weeks. However she did report that it had been slightly worse in the last few days. Secondary to this I did elect to perform basic laboratory studies as well as a CT scan with IV contrast. CT scan revealed no acute findings and labs Clinically significant changes either. There was note of mild bacteria on the urine sample without contamination. Patient does not have frequency urgency or dysuria but based on this finding of bacteria in the urine and her increased abdominal pain in the lower mid abdomen/suprapubic region over the last few days I will send for culture and place her on a short round of antibiotic. However at this time as the overall work-up is negative for signs of systemic infection or overt intestinal abnormality she can be discharged home. Lab Data Attestation: I reviewed the patient's lab results. Labs: Laboratory Results - last 24 hr 02/13/22 02/13/22 02/14/22 20:56 20:56 00:30 WBC 5.3 RBC 4.46 Hgb 14.2 Hct 41.7 MCV 93.5 MCH 31.8 MCHC 34.1 RDW Std Deviation 41.7 RDW Coeff of Yesy 12.1 Plt Count 270 MPV 9.3 Immature Gran % (Auto) 0.200 Neut % (Auto) 53.8 Lymph % (Auto) 35.4 Mcdonald % (Auto) 8.7 Eos % (Auto) 1.5 Baso % (Auto) 0.4 Absolute Neuts (auto) 2.8 Absolute Lymphs (auto) 1.87 Nucleated RBC % 0 Sodium 143 Potassium 3.1 L Chloride 112 H Carbon Dioxide 26.0 Anion Gap 5 BUN 9 Creatinine 0.66 Estim Creat Clear Calc 69.90 Est GFR (MDRD) Af Amer 118 Est GFR (MDRD) Non-Af 97 BUN/Creatinine Ratio 13.7 Glucose 100 Calcium 9.5 Urine Color Yellow Urine Clarity Sl. Cloudy Urine pH 7.0 Ur Specific [place] 1.010 Urine Protein Negative Urine Glucose (UA) Normal Urine Ketones Negative Urine Occult Blood Negative Urine Nitrite Negative Urine Bilirubin Negative Urine Urobilinogen Normal Ur Leukocyte Esterase 25 H Urine RBC 0 SEEN Urine WBC 0 SEEN Ur Squamous Epith Cells 0 SEEN Amorphous Sediment 3+ Urine Bacteria 1+ Urine Mucus 0 SEEN Radiography Diagnostic Testing: Clinical Impression(s) from Imaging Studies Abdomen/Pelvis CT 02/14/22 00:25 IMPRESSION: No CT evidence of acute abnormalities. Electronically Signed: Shaina Gonzalez MD at 1:41 EST Reading Location ID and State: [address] [place] [address] , Service support , Discharge Plan Triage Chief Complaint: Abd Pain ED Provider: Riky Leal Dx/Rx/DC Orders Clinical Impression: Nonspecific abdominal pain, Urinary tract infection, Essential (primary) hypertension Instructions: Abdominal Pain, Urinary Tract Infections in Women Prescriptions: New sulfamethoxazole-trimethoprim [Bactrim DS] 800-160 mg tablet 1 tab PO BID 5 Days Qty: 10 0RF No Action aspirin [Adult Low Dose Aspirin] 81 mg tablet,delayed release (DR/EC) 81 mg PO DAILY topiramate 100 mg tablet 100 mg PO BID Label Comments: TAKE 1 TABLET BY MOUTH TWICE A DAY lisinopril 40 MG tablet 40 mg PO DAILY Nurtec ODT 75 mg tablet,disintegrating 75 mg PO ONCE PRN (Reason: Migraine Headache) Rx Instructions: as a single dose; not to exceed 1 dose per 24 hrs OR 15 doses per 30 days clopidogrel 75 mg tablet 75 mg PO DAILY Qty: 90 3RF pravastatin 80 mg tablet 80 mg PO QHS Qty: 90 4RF Primary Care Provider: Jeanette Luo Referrals: Jeanette Luo DO [Primary Care Provider] - Activity Restrictions/Additional Instructions: Your CT scan did not show any obvious intestinal pathology as a cause of your persistent abdominal pain therefore talk to your surgeon/gaming host about colonoscopy and/or EGD for further evaluation and return to the ER should you have any further concerns Disposition Disposition: Home, Self Care Discharge Date/Time: 02/14/22 02:23
[2022-02-14 02:12] VITALS: RESP 18
[2022-02-14] MEDS: Smz/Tmp Ds Tablet 1 TABLET PO (02:18)
== END 2022-02-14 02:23 | disposition home or self-care (01) ==
PROVIDERS: Emergency Provider Emergency Medicine; PCP Family Medicine; Visit Provider Emergency Medicine
DX: N39.0 Urinary tract infection, site not specified (principal); E78.5 Hyperlipidemia, unspecified; I25.10 Atherosclerotic heart disease of native coronary artery without angina pectoris; I10 Essential (primary) hypertension; R10.9 Unspecified abdominal pain
CPT/HCPCS: 74177; 80048; 81001; 85025; 87086; 96361; 96374; 96375; 99283; J7030; Q9967; A4216

== ENCOUNTER → 2022-12-12 | Outpatient (CLI) | payer BC, SELFPAY ==
[2022-12-12 10:55] LABS: AST(SGOT) 13 U/L (15-37); Alanine Aminotransfer ALT/SGPT 25 U/L (13-56); Albumin, Serum 3.9 g/dL (3.2-5.0); Alkaline Phosphatase 89 U/L (45-117); Bilirubin, Direct 0.24 mg/dL (0.00-0.30); Cholesterol 131 mg/dL (200); Globulin 3.1 g/dL (2.2-4.2); High Density Lipoprotein 67 mg/dL; Triglycerides 83 mg/dL; Very Low Density Lipoprotein 17 mg/dL (5-40)
== END | disposition home or self-care (01) ==
PROVIDERS: PCP Family Medicine; Referring Provider Physician Assistant Medical; Visit Provider Physician Assistant Medical
DX: E78.00 Pure hypercholesterolemia, unspecified (principal)
CPT/HCPCS: 36415; 80061; 80076

== ENCOUNTER → 2023-01-06 | Outpatient (CLI) | payer BC, SELFPAY ==
[2023-01-06 10:59] LABS: Anion Gap 3 (5-15); BUN 9 mg/dL (7-18); BUN/Creat Ratio 12.1 RATIO (10-20); Calcium,Total 9.2 mg/dL (8.5-10.1); Chloride 112 mmol/L (98-107); Creatinine, Serum 0.75 mg/dL (0.55-1.02); EST Glomerular Filtration Rate 83 mL/min (>60); Est Glom Filt Rate - Afr Amer 101 mL/min (>60); Glucose 107 mg/dL (74-106); Sodium Level 141 mmol/L (136-145)
== END | disposition home or self-care (01) ==
LOC: LAB 09:54
PROVIDERS: PCP Family Medicine; Referring Provider Physician Assistant Medical; Visit Provider Physician Assistant Medical
DX: I10 Essential (primary) hypertension (principal); E78.5 Hyperlipidemia, unspecified
CPT/HCPCS: 36415; 80048

== ENCOUNTER → 2023-03-19 | Outpatient (CLI) | payer BC, SELFPAY ==
[2023-03-19 18:08] LABS: Bacteria 0 SEEN /hpf (None Seen); Red Blood Cells-Urine 0 SEEN /hpf (0-5); Squamous Epithelial Cells - UA 0 SEEN /hpf (5-10); White Blood Cells 0 SEEN /hpf (0-5)
[2023-03-19 18:09] LABS: Mucous, Urine 0 SEEN /hpf (<or=2+)
[2023-03-19 18:20] LABS: Color, Urine Yellow (Yellow); Glucose, Dipstick Normal (Normal); Ketone-Dipstick Negative (Negative); Leukocyte Esterase-Dipstick Negative /ul (Negative); Nitrite-Dipstick Negative (Negative); Occult Blood-Urine Negative /ul (Negative); Protein-Dipstick Negative (Negative); Urine Bilirubin Dipstick Negative (Negative); Urine Clarity Clear (Clear); Urine Urobilinogen Normal (Normal)
--- OUTSIDE RECORDS SUMMARY | 2023-03-19 18:24 | XMS RPT_ITS | CCD ---
Author Name Unknown Address [address] [place] [address] Organization [facility] Care Team Providers Care Produce Specialist Name Role Phone Anya Christiansen Unavailable Unavailable Anya Christiansen Unavailable Unavailable MD Tiffany, Marcos Gallego Unavailable [facility] Nurse Unavailable Unavailable Malys DO, Jeanette A Primary Care Provider [phone] Malys DO, Ejanette A Primary Care Provider Malys DO, Jeanette A Primary Care Provider Malys, Jeanette A Primary Care Provider MALYS, JEANETTE Primary Care Unavailable GORDON PACHECO Attending Unavailable MALYS, JEANETTE Primary Care Unavailable GORDON PACHECO Attending Unavailable RUTH ELLIOTT Referring Unavailable MALYS, JEANETTE A Primary Care Unavailable RUTH ELLIOTT Attending Unavailable MALYS, JEANETTE A Primary Care Unavailable RUTH ELLIOTT Referring Unavailable MALYS, JEANETTE A Primary Care Unavailable Allergies Allergy Classification Reported Allergen(s) Allergy Type Date of Onset Reaction(s) Facility (4 sources) prochlorperazine Drug Allergy 06-06-19 16 Rash, N/V [employer] Work Phone: [phone] (8 sources) NKDA; Translations: [NKDA] allergy to substance 06-02-19 13 [employer] Work Phone: [phone] (11 sources) Acetaminophen / oxyCODONE; Translations: [OXYCODONE-ACETAMINO PHEN] Drug Allergy 04-27-19 09 [facility] Work Phone: (9 sources) Prochlorperazine; Translations: [PROCHLORPERAZINE EDISYLATE] Drug Allergy 03-23-19 06 [facility] Work Phone: (11 sources) SUMAtriptan; Translations: [SUMATRIPTAN] Drug Allergy 07-30-19 22 Other: See Comments, Other [facility] (2 sources) Prochlorperazine Drug Allergy 03-23-19 06 [facility] Medications Current Medications Medication Drug Class(es) Dates Sig (Normalized) Sig (Original) amoxicillin 875 mg oral tablet (1 source) Penicillin-class Antibacterial Start: 07-29-2021 End: 08-05-2021 take 1 tablet by mouth twice daily amoxicillin (AMOXIL) 875 mg tablet Take 1 tablet by mouth twice daily for 7 days. 14 tablet 0 07/29/2021 08/05/2021 Active Completed/Discontinued Medications Medication Drug Class(es) Dates Sig (Normalized) Sig (Original) ALPRAZolam 0.5 mg oral tablet (8 sources) Benzodiazepine Start: 09-15-2012 End: 12-19-2013 ALPRAZOLAM 0.5 MG TABS as needed ALPRAZOLAM [id number] Amber Nieto RN amitriptyline hydrochloride 50 mg oral tablet (8 sources) Tricyclic Antidepressant Start: 09-15-2012 End: 12-19-2013 take 1 tablet by mouth once daily AMITRIPTYLINE HCL 50 MG TABS One tablet by mouth daily AMITRIPTYLINE HCL [id number] Marcos Allen MD aspirin 81 mg oral tablet (20 sources) Nonsteroidal Anti-inflammatory Drug Start: 10-08-2011 take 1 tablet by mouth once daily ASPIRIN 81 MG TABS One tablet by mouth daily ASPIRIN [id number] Marcos Allen MD Problems Active Problems Problem Classification Problem Date Documented Da te Episodic/Chronic Abdominal pain (1 source) Lower abdominal pain; Translations: [Lower abdominal pain, unspecified] Episodic Acute myocardial infarction (4 sources) Myocardial infarction; Translations: [ST elevation (STEMI) myocardial infarction of unspecified site] Onset: 01-22-2011 01-22-2011 Chronic Coronary atherosclerosis and other heart disease (12 sources) Coronary arteriosclerosis; Translations: [Atherosclerotic heart disease of elem coronary artery without angina pectoris] Onset: 01-22-2011 01-22-2011 Chronic Disorders of lipid metabolism (4 sources) Hyperlipidemia; Translations: [Hyperlipidemia, unspecified] Onset: 01-22-2011 01-22-2011 Chronic Essential hypertension (4 sources) Hypertensive disorder; Translations: [Essential (primary) hypertension] Onset: 01-22-2011 01-22-2011 Chronic Headache; including migraine (11 sources) Migraine; Translations: [Migraine, unspecified, not intractable, without status migrainosus] Onset: 06-02-2012 06-02-2012 Chronic Menopausal disorders (10 sources) Atrophic vaginitis; Translations: [Postmenopausal atrophic vaginitis] Onset: 06-02-2012 06-02-2012 Chronic Nonmalignant breast conditions (2 sources) Breast finding ; Translations: [Dense breast tissue] 02-20-2022 Episodic Otitis media and related conditions (1 source) Acute left otitis media; Translations: [Otitis media, unspecified, left ear] Episodic Unclassified (8 sources) Long-term drug therapy; Translations: [Other extermination inspector (current) drug therapy] Onset: 01-22-2011 12-24-2015 Unclassified (4 sources) Screening mammography ; Translations: [Encounter for screening mammogram for malignant neoplasm of breast] Onset: 06-06-2015 06-06-2015 Unclassified (4 sources) Percutaneous transluminal coronary angioplasty ; Translations: [Coronary angioplasty status] Onset: 01-22-2011 01-22-2011 Past or Other Problems Problem Classification Problem Date Documented Da te Episodic/Chronic Other screening for suspected conditions (not mental disorders or infectious disease) (8 sources) Patient encounter status; Translations: [Encounter for screening mammogram for malignant neoplasm of breast] Onset: 02-20-2022 Episodic Results Test Name Value Interpretation Reference Range Facil ity Vital Signs Date Time Vital Sign Value Performing Clinician Facility 12-30-2022 07:57-0500 Body height 154.9 cm Ruth Elliott APRN.CNP Work Phone: [facility] 12-30-2022 07:57-0500 Body weight 66.68 kg Ruth Elliott APRN.CNP Work Phone: [facility] 12-30-2022 07:57-0500 Diastolic blood pressure 76 mm[Hg] Ruth Elliott APRN.CNP Work Phone: [facility] 12-30-2022 07:57-0500 Systolic blood pressure 118 mm[Hg] Ruth Elliott APRN.SEWER REPAIRER Work Phone: [facility] 12-17-2022 07:22-0400 Body height 157.5 cm Gordon Pacheco MD Work Phone: [facility] 12-17-2022 07:22-0400 Body mass index (BMI) [Ratio] 26.92 kg/m2 Gordon Pacheco MD Work Phone: [facility] 12-17-2022 07:22-0400 Body weight 66.77 kg Gordon Pacheco MD Work Phone: [facility] 12-17-2022 07:22-0400 Diastolic blood pressure 91 mm[Hg] Gordon Pacheco MD Work Phone: [facility] 12-17-2022 07:22-0400 Heart rate 81 /min Gordon Pacheco MD Work Phone: [facility] 12-17-2022 07:22-0400 Systolic blood pressure 143 mm[Hg] Gordon Pacheco MD Work Phone: [facility] 12-24-2021 07:33-0500 Body height 154.9 cm Ruth Elliott APRN.SEWER REPAIRER Work Phone: [facility] 12-24-2021 07:33-0500 Body weight 63.05 kg Ruth Elliott APRN.SEWER REPAIRER Work Phone: [facility] 12-24-2021 07:33-0500 Diastolic blood pressure 82 mm[Hg] Ruth Elliott APRN.SEWER REPAIRER Work Phone: [facility] 12-24-2021 07:33-0500 Systolic blood pressure 138 mm[Hg] Ruth Elliott APRN.SEWER REPAIRER Work Phone: [facility] 07-29-2021 08:14-0400 Body temperature 99.19 [degF] Abbie García APRN.SEWER REPAIRER Work Phone: [facility] 07-29-2021 08:14-0400 Body weight 63.5 kg Abbie García APRN.SEWER REPAIRER Work Phone: [facility] 07-29-2021 08:14-0400 Diastolic blood pressure 84 mm[Hg] Abbie García APRN.SEWER REPAIRER Work Phone: [facility] 07-29-2021 08:14-0400 Heart rate 76 /min Abbie García APRN.SEWER REPAIRER Work Phone: [facility] 07-29-2021 08:14-0400 Respiratory rate 16 /min Abbie García APRN.SEWER REPAIRER Work Phone: [facility] 07-29-2021 08:14-0400 SaO2% (BldA) [Mass fraction] 98 % Abbie García APRN.SEWER REPAIRER Work Phone: [facility] 07-29-2021 08:14-0400 Systolic blood pressure 132 mm[Hg] Abbie García APRN.SEWER REPAIRER Work Phone: [facility] 12-17-2016 08:45-0400 BMI (Body Mass Index) 29.63 kg/m2 [facility] Work Phone: 12-17-2016 08:45-0400 BP Diastolic 80 mm[Hg] [facility] Work Phone: 12-17-2016 08:45-0400 BP Systolic 130 mm[Hg] [facility] Work Phone: 12-17-2016 08:45-0400 Height 157.48 cm [facility] Work Phone: 12-17-2016 08:45-0400 Pulse (Heart Rate) 68 /min [facility] Work Phone: 12-17-2016 08:45-0400 Respiratory Rate 20 /min [facility] Work Phone: 12-17-2016 08:45-0400 Weight 73.48 kg [facility] Work Phone: 12-17-2015 09:13-0400 BSA (Body Surface Area) 1.74 m2 [facility] Work Phone: 06-06-2015 15:47-0400 Body Temperature 97.6 [degF] [facility] Work Phone: 06-01-2012 15:38-0400 Height 157.48 cm [facility] Work Phone: 06-01-2012 15:38-0400 Weight 50.91 kg [facility] Work Phone: Encounters Encounter Date Encounter Type Care Provider Facility Start: 12-30-2022 End: 12-30-2022 ambulatory RUTH ELLIOTT Facility:[facility] Start: 12-30-2022 End: 12-30-2022 Patient encounter procedure Ruth Elliott APRN.SEWER REPAIRER Work Phone: OB/Gynecology Procedures Date Procedure Procedure Detail Performing Clinician Start: 03-25-2022 Us breast uni real t yolanda with image limited Ruth Elliott APRN.SEWER REPAIRER Work Phone: Start: 02-20-2022 ROMAN SCREENING W ANABEL Am zohra Elliott APRN.SEWER REPAIRER Work Phone: Start: 02-20-2022 Mammography Mammograph y Coordinator Start: 12-24-2021 Urnls dip stick/tabl et rgnt auto w/o microscopy Ruth Elliott APRN.SEWER REPAIRER Work Phone: Start: 09-06-2018 Colonoscopy Abbie García APRN.SEWER REPAIRER Work Phone: Start: 04-19-2018 Mammography Abbie García APRN.SEWER REPAIRER Work Phone: Start: 12-17-2016 End: 12-18-2016 *Hepatic Function Panel Carlos Alberto Robins Start: 12-17-2016 End: 12-17-2016 STAMP COLLECTOR Marcos Allen MD Start: 12-17-2016 End: 12-17-2016 Follow Up Appt 1 year Marcos Allen MD Start: 12-17-2016 End: 12-18-2016 Lipid 1996 panel - Serum or Plasma Marcos Allen MD Start: 06-17-2016 End: 12-17-2016 *Hepatic Function Panel Carlos Alberto Robins Start: 06-17-2016 End: 12-17-2016 Lipid 1996 panel - Serum or Plasma Marcos Allen MD Start: 12-17-2015 End: 12-19-2015 *Hepatic Function Panel Carlos Alberto Robins Start: 12-17-2015 End: 12-17-2015 HUSAM Allen MD Start: 12-17-2015 End: 12-17-2015 Follow Up Appt 1 year Marcos Allen MD Start: 12-17-2015 End: 12-19-2015 Lipid 1996 panel - Serum or Plasma Marcos Allen MD Start: 12-18-2014 End: 12-18-2014 HUSAM Allen MD Start: 12-18-2014 End: 12-19-2014 Documentation of current medications Marcos Allen MD Start: 12-18-2014 End: 12-18-2014 Follow Up Appt 1 year Marcos Allen MD Start: 12-19-2013 End: 12-19-2013 HUSAM Allen MD Start: 12-19-2013 End: 12-19-2013 Follow Up Appt 1 year Marcos Allen MD Start: 12-20-2012 End: 12-20-2012 HUSAM Allen MD Start: 12-20-2012 End: 12-20-2012 Follow Up Appt 1 year Marcos Allen MD Start: 12-16-2012 End: 12-17-2016 *Hepatic Function Panel Joanne piña PA-C Work Phone: Start: 12-16-2012 End: 12-17-2016 Lipid 1996 panel - Serum or Plasma Joanne Dc PA-C Work Phone: Start: 06-01-2012 End: 06-20-2012 *Hepatic Function Panel Joanne piña PA-C Work Phone: Start: 06-01-2012 End: 06-01-2012 STAMP COLLECTOR Joanne Dc PA-C Work Phone: Start: 06-01-2012 End: 06-01-2012 Ecg routine ecg w/least 12 lds w/i&r Joanne Dc PA-C Work Phone: Start: 06-01-2012 End: 06-01-2012 Follow Up Appt 6 months Joanne piña PA-C Work Phone: Start: 06-01-2012 End: 06-20-2012 Lipid 1996 panel - Serum or Plasma Joanne Dc PA-C Work Phone: Start: 03-18-2012 End: 06-01-2012 *Hepatic Function Panel Carlos Alberto Robins Start: 03-18-2012 End: 06-01-2012 Lipid Kodi panel - Serum or Plasma Marcos Allen MD Start: 12-22-2011 End: 06-01-2012 Follow Up Appt 6 months Carlos Alberto Robins Start: 12-22-2011 End: 12-28-2011 Nuclear stress test -exercise Marcos Allen MD Start: 10-08-2011 End: 10-08-2011 Follow Up Appt 6 months Carlos Alberto Robins Start: 08-10-2011 End: 10-13-2011 *Hepatic Function Panel Carlos Alberto Robins Start: 08-10-2011 End: 10-13-2011 Lipid 1996 panel - Serum or Plasma Marcos Allen MD Start: 02-05-2011 End: 10-13-2011 *Hepatic Function Panel Carlos Alberto Robins Start: 02-05-2011 End: 04-30-2011 Cardiac Rehab Marcos Allen MD Start: 02-05-2011 End: 12-28-2011 Ecg routine ecg w/least 12 lds w/i&r Marcos Allen MD Start: 02-05-2011 End: 02-05-2011 Follow Up Appt 6 months Carlos Alberto Robins Start: 02-05-2011 End: 10-13-2011 Lipid 1996 panel - Serum or Plasma Marcos Allen MD Plan of Treatment Date Care Activity Detail Author Start: 09-07-2023 Colonoscopy COLONOSCOPY [facility] Start: 09-07-2023 COLORECTAL CANCER SCREENING COLORECTAL CANCER SCREENING [facility] Start: 07-27-2023 End: 07-27-2023 Patient encounter procedure 07/27/2023 9:00 AM EDT Office Visit [facility] [address] [place] [address] Gordon Pacheco MD [address] [place] [address] [facility] Start: 02-20-2023 Mammography [facility] Start: 10-28-2022 End: 10-28-2022 Patient encounter procedure 10/28/2022 8:00 AM EDT Office Visit [facility] [address] [place] [id number] Gordon Pacheco MD [address] [place] [address] [facility] Start: 10-16-2022 Covid-19 Vaccine ( season) Covid-19 Vaccine ( season) [facility] Start: 10-16-2022 Influenza vaccination Influenza Vaccine (#1) [facility] Start: 02-15-2022 DEPRESSION ASSESSMENT DEPRESSION ASSESSMENT [facility] Start: 01-21-2022 Shingrix Vaccine (2 of 2) Shingrix Vaccine (2 of 2) [facility] Start: 12-18-2021 LIPID SCREEN LIPID SCREEN [facility] Start: 12-17-2021 Lipid 1996 panel - Serum or Plasma Lipid Screening [facility] Start: 12-17-2021 Lipid panel Lipid Panel [facility] Start: 10-16-2021 Influenza vaccination [facility] Start: 02-15-2021 DEPRESSION ASSESSMENT DEPRESSION ASSESSMENT [facility] Start: 08-22-2020 COVID-19 VACCINE (2 - Booster for Mona series) COVID-19 VACCINE (2 - Booster for Mona series) [facility] Start: 2019 RSV Vaccine (1 - 1-dose 60+ series) RSV Vaccine (1 - 1-dose 60+ series) [facility] Start: 04-20-2019 Mammography MAMMOGRAM [facility] Start: 12-18-2017 Hepatitis B surface antibody level LDL CHOLESTEROL [facility] Start: 12-17-2017 Hepatitis B surface antibody level LDL Cholesterol [facility] Start: 12-16-2017 End: 12-16-2017 Appointment Appointment [facility] [employer] [facility] Work Phone: Start: 06-17-2017 End: 12-18-2016 *Hepatic Function Panel *Hepatic Function Panel [facility] Work Phone: Start: 06-17-2017 End: 12-18-2016 Lipid panel [AGGREGATE] *Lipid Profile CC PCP [email or web address] Work Phone: Start: 12-17-2016 End: 12-18-2016 *Hepatic Function Panel *Hepatic Function Panel [email or web address] [employer] Work Phone: Start: 12-17-2016 End: 12-17-2016 STAMP COLLECTOR STAMP COLLECTOR [email or web address] Work Phone: Start: 12-17-2016 End: 12-17-2016 Follow Up Appt 1 year Follow Up Appt 1 year [facility] Work Phone: Start: 12-17-2016 End: 12-18-2016 Lipid panel [AGGREGATE] *Lipid Profile CC PCP [facility] Work Phone: Start: 06-17-2016 End: 12-17-2016 *Hepatic Function Panel *Hepatic Function Panel [facility] Work Phone: Start: 06-17-2016 End: 12-17-2016 Lipid panel [AGGREGATE] *Lipid Profile CC PCP [facility] Work Phone: Start: 12-17-2015 End: 12-19-2015 *Hepatic Function Panel *Hepatic Function Panel [facility] Work Phone: Start: 12-17-2015 End: 12-17-2015 STAMP COLLECTOR STAMP COLLECTOR [facility] Work Phone: Start: 12-17-2015 End: 12-17-2015 Follow Up Appt 1 year Follow Up Appt 1 year [facility] Work Phone: Start: 12-17-2015 End: 12-19-2015 Lipid panel [AGGREGATE] *Lipid Profile CC PCP [facility] Work Phone: Start: 06-06-2015 End: 06-06-2015 Mammogram, screening Mammogram, Screening, both breasts [facility] Work Phone: Start: 12-18-2014 End: 12-18-2014 STAMP COLLECTOR STAMP COLLECTOR [facility] Work Phone: Start: 12-18-2014 End: 12-18-2014 Follow Up Appt 1 year Follow Up Appt 1 year [facility] Work Phone: Start: 12-19-2013 End: 12-19-2013 STAMP COLLECTOR STAMP COLLECTOR [facility] Work Phone: Start: 12-19-2013 End: 12-19-2013 Follow Up Appt 1 year Follow Up Appt 1 year [facility] Work Phone: Start: 12-20-2012 End: 12-20-2012 STAMP COLLECTOR STAMP COLLECTOR [facility] Work Phone: Start: 12-20-2012 End: 12-20-2012 Follow Up Appt 1 year Follow Up Appt 1 year [facility] Work Phone: Start: 12-16-2012 End: 12-17-2016 *Hepatic Function Panel *Hepatic Function Panel [facility] Work Phone: Start: 12-16-2012 End: 12-17-2016 Lipid panel [AGGREGATE] *Lipid Profile [facility] Work Phone: Start: 06-01-2012 End: 06-20-2012 *Hepatic Function Panel *Hepatic Function Panel [facility] Work Phone: Start: 06-01-2012 End: 06-01-2012 STAMP COLLECTOR STAMP COLLECTOR [facility] Work Phone: Start: 06-01-2012 End: 06-01-2012 Ecg routine ecg w/least 12 lds w/i&r EKG (In office) [facility] Work Phone: Start: 06-01-2012 End: 06-01-2012 Follow Up Appt 6 months Follow Up Appt 6 months [facility] Work Phone: Start: 06-01-2012 End: 06-20-2012 Lipid panel [AGGREGATE] *Lipid Profile [facility] Work Phone: Start: 04-07-2012 DIABETES SCREEN DIABETES SCREEN [facility] Start: 04-07-2012 Diabetes Screening Diabetes Screening [facility] Start: 03-18-2012 End: 06-01-2012 *Hepatic Function Panel *Hepatic Function Panel [facility] Work Phone: Start: 03-18-2012 End: 06-01-2012 Lipid panel [AGGREGATE] *Lipid Profile [facility] Work Phone: Start: 12-22-2011 End: 06-01-2012 Follow Up Appt 6 months Follow Up Appt 6 months [facility] Work Phone: Start: 12-22-2011 End: 12-22-2011 Nuclear stress test -exercise Nuclear stress test -exercise [facility] Phone: Start: 10-08-2011 End: 10-08-2011 Follow Up Appt 6 months Follow Up Appt 6 months [facility] [employer] Phone: Start: 08-10-2011 End: 10-13-2011 *Hepatic Function Panel *Hepatic Function Panel [facility] Work Phone: Start: 08-10-2011 End: 10-13-2011 Lipid panel [AGGREGATE] *Lipid Profile [facility] Work Phone: Start: 02-05-2011 End: 10-13-2011 *Hepatic Function Panel *Hepatic Function Panel [facility] Work Phone: Start: 02-05-2011 End: 12-28-2011 Cardiac Rehab Cardiac Rehab [facility] [employer] Phone: Start: 02-05-2011 End: 12-28-2011 Ecg routine ecg w/least 12 lds w/i&r EKG (In office) [facility] Work Phone: Start: 02-05-2011 End: 02-05-2011 Follow Up Appt 6 months Follow Up Appt 6 months [facility] Work Phone: Start: 02-05-2011 End: 10-13-2011 Lipid panel [AGGREGATE] *Lipid Profile [facility] Work Phone: Start: 10-30-2009 SHINGRIX VACCINE (1 of 2) SHINGRIX VACCINE (1 of 2) [facility] Start: 10-30-2004 COLOGUARD (FIT-DNA) COLOGUARD (FIT-DNA) [facility] Start: 10-30-[address] COLONOGRAPHY [facility] Start: 10-30-2004 FECAL OCCULT BLOOD FECAL OCCULT BLOOD [facility] Start: 10-30-2004 SIGMOIDOSCOPY SIGMOIDOSCOPY [facility] Start: 1999 Screening for malignant neoplasm of breast Mammogram [facility] Start: 10-30-1989 Screening for malignant neoplasm of cervix [facility] Start: 10-30-1980 Screening for malignant neoplasm of cervix Pap Smear [facility] Start: 10-30-1978 DTaP/Tdap/Td Vaccines (1 - Tdap) DTaP/Tdap/Td Vaccines (1 - Tdap) [facility] Start: 10-30-1978 Urine microalbumin profile [facility] Start: 10-30-1977 ANNUAL PCP TEAM CHRONIC DISEASE VISIT ANNUAL PCP TEAM CHRONIC DISEASE VISIT [facility] Start: 10-30-1977 Diabetes mellitus screening Diabetes Screening [facility] Start: 10-30-1977 HEPATITIS C SCREENING HEPATITIS C SCREENING [facility] Start: 10-30-1977 Hepatitis C screening Hepatitis C Screening [facility] Start: 10-30-1977 HIV SCREENING HIV SCREENING [facility] Start: 1971 Adult depression screening assessment DEPRESSION SCREENING [facility] Start: 10-30-1960 MMR Vaccines (1 of 1 - Standard series) MMR Vaccines (1 of 1 - Standard series) [facility] Start: 1959 HIV screening HIV Screening [facility] Start: 1959 Screening for malignant neoplasm of colon [facility] Bacteria identified in Urine by Culture URINE CULTURE Microbiology Routine Lower abdominal pain Ordered: 12/24/2021 [facility] Work Phone: Immunizations Immunization Date Immunization Notes Care Provider Fa [facility] 06-27-2020 Mona SARS-CoV-2 Vaccination Gordon Pacheco MD Work Phone: [facility] Payers Date Payer Category Payer Unknown [employer] BLUE CARD PPO OOS [id number] 2019-Present [phone] [id number] [place] [address] PPO [id number] 2019 Unknown [id number] 2019 Unknown [id number] Social History Date Type Detail [facility] Start: 07-29-2021 End: 12-30-2022 Alcohol intake Current non-drinker of alcohol (finding) [facility] Start: 1960 Sex Assigned At Not on file [facility] Start: 07-19-2021 End: 07-29-2021 Exposure to SARS-CoV-2 (event) Not sure [facility] Work Phone: Start: 07-28-2022 End: 12-17-2022 Alcohol intake Lifetime non-drinker (finding) [facility] Start: 03-02-2022 End: 07-28-2022 History of Social function [facility] Start: 03-02-2022 End: 07-28-2022 Tobacco use panel [facility] National Score (1-100), lower number is lower risk Not on file [facility] Clinical Notes 07-29-2021 to 12-30-2022 Ruth Elliott APRN.SEWER REPAIRER - 12/30/2022 7:53 AM Belkis Pacheco MD - 12/17/2022 7:30 AM EDTTelephone Encounter - Lety Valdez MA - 09/11/2022 1:45 PM Melani Fried RDMS - 03/25/2022 9:30 AM EST Note Date & Type Note Facility 12-30-2022 Note HNO ID: [id number] Author: Ruth Elliott APRN.SEWER REPAIRER Service: ? Author Type: Nurse Practitioner Type: Progress Notes Filed: 12/30/2022 8:38 AM Note Text: Crabbing Machine Operator offered: Patient declines. Mcclelland is a 62 year old who presents for an annual gynecologic exam without complaints. Postmenopausal: Hysterectomy with BSO for HMB HRT use: No. History of abnormal pap: No Last mammogram: 2022 normal, fibrocystic tissue right breast History of abnormal mammogram: Yes Breast biopsy Sexually active: Yes History of STDS: None Patient concerns for STD exposure: No. Time with current partner: 14 years Pain with intercourse: Yes, improved with silicone based lubricant Postcoital bleeding: Yes, occasional spotting afterward Hot flashes: No Night sweats: No Vaginal dryness: No Documentation from previous visit of 12/24/2021 was copied and pasted, documentation has been reviewed and edited as necessary for today's visit. OB History T1 L1 SAB0 IAB0 Ectopic0 Multiple0 Live Births0 Entertainment Reporter History LMP: Hysterectomy Age at Menarche: Age at First : Age at Menopause: Entertainment Reporter History Comments: Sexual Activity: Yes; Male; Hysterectomy Contraception: Surgical PAST MEDICAL HISTORY Diagnosis Date Coronary artery disease Excessive or frequent menstruation MS (myocardial infarction) (HCC) Mole of skin removed Other forms of migraine Unspecified essential hypertension PAST SURGICAL HISTORY Procedure Laterality Date BREAST BIOPSY CC CORONARY STENT 2010 ASD COLONOSCOPY FLX DX W/COLLJ SPEC WHEN PFRMD 08/14/2011 Colonoscopy COLONOSCOPY FLX DX W/COLLJ SPEC WHEN PFRMD 09/06/2018 Colonoscopy EXCISION BENIGN LESIONS,TRUNK,ARMS,LEGS TOTAL ABDOMINAL HYSTERECT W/WO RMVL TUBE OVARY with BSO FAMILY HISTORY Problem Relation Age of Onset Heart Mother Colon Cancer Mother other (Migraine) Mother Cancer Father lymphoma other (rheumatoid arthritis) Sister Cancer Maternal Grandmother 85 ovarian SOCIAL HISTORY Social History Tobacco Use Smoking status: Never Smokeless tobacco: Never Vaping Use Vaping Use: Never used Substance Use Topics Alcohol use: No Drug use: No REVIEW OF SYSTEMS Abdomen: No abdominal pain, nausea, vomiting, diarrhea, or constipation. No bloating, early satiety, indigestion, or increased flatulence. Bladder: No dysuria, gross hematuria, urinary frequency, urinary urgency, or incontinence Breast: No breast lumps, nipple d/c, overlying skin changes, redness or skin retraction Allergies and current medication updated:Yes EXAM: BP 118/76 Ht 5' 1 (1.55m) Wt 147 lb (66.7kg) BMI 27.79 kg/(m2). GENERAL: pleasant, female in no apparent distress HEENT: Normocephalic, atraumatic, mucus membranes moist, and no lesions NECK: Supple, full range of motion, no adenopathy, and thyroid normal DERMATOLOGY: Normal, without lesions, non-icteric, and non-hirsute BREAST: soft, non-tender, symmetric, no dominant mass, normal nipple-areolar complex, no lymphadenopathy, and no nipple discharge CHEST: Normal inspiratory effort ABDOMEN: soft, non-tender, and no masses PELVIC: external genitalia normal, normal Bartholin's glands, urethra, [place]'s glands, no vulvar lesions, physiologic discharge present, normal appearing perineal body and perianal region, cervix surgically absent. +postmenopausal atrophic vaginitis BIMANUAL: no adnexal masses, non-tender, and uterus surgically absent RECTOVAGINAL: deferred. NEURO: alert and oriented x3,exam grossly non-focal EXTREMITIES: normal ASSESSMENT/PLAN: 1) Health maintenance: Pap/HPV screening no longer needed Mammogram ordered Mammogram up to date Nutrition, exercise and routine health maintenance exams reviewed. Calcium/Vitamin D supplementation information provided. 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 Postmenopausal: Hysterectomy with BSO for HMB HRT use: No. History of abnormal pap: No Last mammogram: 2022 normal, fibrocystic tissue right breast History of abnormal mammogram: Yes Breast biopsy Sexually active: Yes History of STDS: None Patient concerns for STD exposure: No. Time with current partner: 14 years Pain with intercourse: Yes, improved with silicone based lubricant Postcoital bleeding: Yes, occasional spotting afterward Hot flashes: No Night sweats: No Vaginal dryness: No Documentation from previous visit of 12/24/2021 was copied and pasted, documentation has been reviewed and edited as necessary for today's visit. OB History T1 L1 SAB0 IAB0 Ectopic0 Multiple0 Live Births0 Entertainment Reporter History LMP: Hysterectomy Age at Menarche: Age at First : Age at Menopause: Entertainment Reporter History Comments: Sexual Activity: Yes; Male; Hysterectomy Contraception: Surgical PAST MEDICAL HISTORY Diagnosis Date Coronary artery disease Excessive or frequent menstruation MS (myocardial infarction) (HCC) Mole of skin removed Other forms of migraine Unspecified essential hypertension PAST SURGICAL HISTORY Procedure Laterality Date BREAST BIOPSY CC CORONARY STENT 2010 ASD COLONOSCOPY FLX DX W/COLLJ SPEC WHEN PFRMD 08/14/2011 Colonoscopy COLONOSCOPY FLX DX W/COLLJ SPEC WHEN PFRMD 09/06/2018 Colonoscopy EXCISION BENIGN LESIONS,TRUNK,ARMS,LEGS TOTAL ABDOMINAL HYSTERECT W/WO RMVL TUBE OVARY with BSO FAMILY HISTORY Problem Relation Age of Onset Heart Mother Colon Cancer Mother other (Migraine) Mother Cancer Father lymphoma other (rheumatoid arthritis) Sister Cancer Maternal Grandmother 85 ovarian SOCIAL HISTORY Social History Tobacco Use Smoking status: Never Smokeless tobacco: Never Vaping Use Vaping Use: Never used Substance Use Topics Alcohol use: No Drug use: No REVIEW OF SYSTEMS Abdomen: No abdominal pain, nausea, vomiting, diarrhea, or constipation. No bloating, early satiety, indigestion, or increased flatulence. Bladder: No dysuria, gross hematuria, urinary frequency, urinary urgency, or incontinence Breast: No breast lumps, nipple d/c, overlying skin changes, redness or skin retraction Allergies and current medication updated:Yes EXAM: BP 118/76 Ht 5' 1 (1.55m) Wt 147 lb (66.7kg) BMI 27.79 kg/(m^2). GENERAL: pleasant, female in no apparent distress HEENT: Normocephalic, atraumatic, mucus membranes moist, and no lesions NECK: Supple, full range of motion, no adenopathy, and thyroid normal DERMATOLOGY: Normal, without lesions, non-icteric, and non-hirsute BREAST: soft, non-tender, symmetric, no dominant mass, normal nipple-areolar complex, no lymphadenopathy, and no nipple discharge CHEST: Normal inspiratory effort ABDOMEN: soft, non-tender, and no masses PELVIC: external genitalia normal, normal Bartholin's glands, urethra, [place]'s glands, no vulvar lesions, physiologic discharge present, normal appearing perineal body and perianal region, cervix surgically absent. +postmenopausal atrophic vaginitis BIMANUAL: no adnexal masses, non-tender, and uterus surgically absent RECTOVAGINAL: deferred. NEURO: alert and oriented x3,exam grossly non-focal EXTREMITIES: normal ASSESSMENT/PLAN: 1) Health maintenance: Pap/HPV screening no longer needed Mammogram ordered Mammogram up to date Nutrition, exercise and routine health maintenance exams reviewed. Calcium/Vitamin D supplementation information provided. Colon cancer screening: up to date with screening 2) Follow up one year or sooner as needed Ruth Elliott APRN.[facility] documented in this encounter [facility] 12-17-2022 History of Presen t illness Narrative Images from the original note were not included. [facility] [address] [facility] [address] [facility] [address] Dept: [phone] Dept Loc: [phone] Visit type: Established Patient Reason for Visit: Follow-up and Migraine Assessment and Plan 1. Migraine with aura and without status migrainosus, not intractable Subjective HPI: She reports that her migraines are controlled with the topiramate. She is tolerating the topiramate. She reports that the Nurtec works when she takes it; it's a miracle. She reports that she has not had any issues with chest pain now that she is not using sumatriptan. REVIEW OF SYSTEMS: Review of Systems Constitutional: Negative for appetite change, chills, diaphoresis, fever and unexpected weight change. HENT: Negative for dental problem and mouth sores. Eyes: Negative for discharge and itching. Respiratory: Negative for chest tightness. Cardiovascular: Negative for chest pain and leg swelling. Gastrointestinal: Negative for rectal pain and vomiting. Endocrine: Negative for polydipsia, polyphagia and polyuria. Genitourinary: Negative for decreased urine volume, flank pain and genital sores. Musculoskeletal: Negative for arthralgias. Skin: Negative for color change. Allergic/Immunologic: Negative for food allergies and immunocompromised state. Neurological: Positive for headaches. Hematological: Negative for adenopathy. Does not bruise/bleed easily. Psychiatric/Behavioral: Negative for agitation, behavioral problems, decreased concentration, sleep disturbance and suicidal ideas. Allergies Allergen Reactions Oxycodone-Acetaminophen Prochlorperazine Sumatriptan Other Current Outpatient Medications: aspirin 81 MG EC tablet, Take 81 mg by mouth daily., Disp: , Rfl: clopidogrel (Plavix) 75 MG tablet, Take 75 mg by mouth daily., Disp: , Rfl: lisinopril 40 MG tablet, Take 40 mg by mouth daily., Disp: , Rfl: pravastatin (Pravachol) 80 MG tablet, Take 80 mg by mouth Nightly., Disp: , Rfl: Rimegepant Sulfate 75 MG tablet dispersible, TAKE 1 PILL BY MOUTH ONCE DAILY NEEDED (FOR MIGRAINE), Disp: 8 tablet, Rfl: 11 topiramate 50 MG tablet, TAKE 50 MG BY MOUTH 2 TIMES DAILY. DO NOT START BEFORE AUGUST 19, 2022., Disp: 60 tablet, Rfl: 11 cholecalciferol (Vitamin D-3) 1.25 MG (43028 UT) capsule, Take 1 capsule (50,000 Units) by mouth 1 (one) time per week., Disp: 12 capsule, Rfl: 3 Past Medical History: Diagnosis Date Angiolipoma CAD (coronary artery disease) Headache Social History Tobacco Use Smoking status: Never Smokeless tobacco: Never Substance Use Topics Alcohol use: Never Past Surgical History: Procedure Laterality Date CORONARY ANGIOPLASTY Family History Problem Relation Name Age of Onset Colon cancer Mother Objective Vitals: BP (!) 143/91 (BP Location: Right arm, Patient Position: Sitting, BP Cuff Size: Adult) Pulse 81 Ht 5' 2 (1.575 m) Wt 147 lb 3.2 oz (66.8 kg) BMI 26.92 kg/m General Appearance: Patient is in no apparent distress. Head is normocephalic, atraumatic Cardiovascular: Regular rate and rhythm. No heart murmurs. No carotid bruit Neurologic: Mentation: Alert and oriented x 3 to person, place and time. Speech and Language: Speech and language normal Concentration and Attention: Concentration normal Memory: Memory normal Fund of Knowledge: Fund of knowledge normal Cranial Nerves: II, III, IV, V, , VII, VIII, IX, X, XI, XII examined and were intact. Motor: Strength: Strength 5 out of 5 with normal tone Alternating Movements: Normal Cogwheel Rigidity: None Tone: Tone is normal Tremor / Involuntary Movements: None Deep Tendon Reflexes: 1 out of 4 symmetrical in all four limbs. Coordination: Normal coordination upper and lower extremities Gait and Station: Station is normal. Gait is normal Data Reviewed and Summarized DIAGNOSTIC TESTING CBC: No results found for: WBC , RBC , HGB , HCT , MCV , MCH , MCHC , RDW , PLT , MPV CMP: No results found for: NA , K , CL , CO2 , BUN , CREATININE , AGRATIO , LABGLOM , GLUCOSE , GLU , PROT , CALCIUM , BILITOT , ALKPHOS , AST , ALT BMP: No results found for: NA , K , CL , CO2 , BUN , CREATININE , CALCIUM , LABGLOM , GLUCOSE , GLU PT/INR: No results found for: PROTIME , INR PTT: No results found for: APTT , PTT [APTT} FLP: No results found for: CHLPL , TRIG , HDL , LDLCALC , LDLDIRECT TSH: No results found for: TSH VITAMIN B12: No results found for: [id number] No results found for: PHENYTOIN , PHENOBARB , VALPROATE , CBMZ No components found for: TOPIRA @RESULTINGLABINFO@ No results found for: LEVETIRACETA , FERRITIN , CRP , NITZA , ANCA No results found for: PANCHO , IMMUNOGLOBUL , OLIGOBANDS No results found for: [id number] , HEPCAB No results found for: CRP , ANATITER , ANCA FERRITIN: No results found for: FERRITIN ---- No image results found. IMPRESSION and PLAN: Diagnosis Plan 1. Migraine with aura and without status migrainosus, not intractable The patient is doing well on topiramate and Nurtec. Because she is going to stay on topiramate for a while, I recommend Vitamin D3 50,000 U weekly with food. GORDON PACHECO MD I spent 30 minutes caring for this patient today, reviewing labs, records, seeing the patient, documenting in the record and arranging for studies. @SIGNATURE@ documented in this encounter [facility] 09-11-2022 Telephone encounter Note Last ov- 07/28/22 Next ov- 10/28/22 [facility] 09-11-2022 Miscellaneous Notes Last ov- 07/28/22 Next ov- 10/28/22 documented in this encounter [facility] 03-25-2022 Note HNO ID: [id number] Author: Melani Vaughn RDMS Service: ? Author Type: Test Administrator Type: Progress Notes Filed: 03/25/2022 9:48 AM Note Text: Radiology Service Progress Note PATIENT NAME: Krystin Jones DATE OF SERVICE: March 25, 2022 TIME: 9:48 AM PATIENT IDENTITY VERIFICATION COMPLETED USING TWO (2) IDENTIFIERS: Name and Date of confirmed by patient verbally. FALL SCREENING: Has the patient had 2 falls in the last year or 1 fall with injury or currently using an Ambulatory Assistive Device (Walker, Cane, Wheelchair, Crutches, etc.)? No PATIENT GENDER DATA: Female. status: : No status: NO. PATIENT RELEVANT IMPLANT DATA REVIEWED: Not Applicable RADIOLOGY DEPARTMENT: Ultrasound PERIPHERAL IV DATA: Not applicable SIGNED BY: Melani Vaughn RDMS March 25, 2022 9:48 AM [facility] 03-25-2022 History of Presen t illness Narrative Radiology Service Progress Note PATIENT NAME: Krystin Jones DATE OF SERVICE: March 25, 2022 TIME: 9:48 AM PATIENT IDENTITY VERIFICATION COMPLETED USING TWO (2) IDENTIFIERS: Name and Date of confirmed by patient verbally. FALL SCREENING: Has the patient had 2 falls in the last year or 1 fall with injury or currently using an Ambulatory Assistive Device (Walker, Cane, Wheelchair, Crutches, etc.)? No PATIENT GENDER DATA: Female. status: : No status: NO. PATIENT RELEVANT IMPLANT DATA REVIEWED: Not Applicable RADIOLOGY DEPARTMENT: Ultrasound PERIPHERAL IV DATA: Not applicable SIGNED BY: Melani Vaughn RDMS March 25, 2022 9:48 AM documented in this encounter [facility] 02-22-2022 Miscellaneous Notes February 22, 2022 PID: [id number] Krystin Jones [address] [place] [address] Dear Ms. Jones, Your recent breast imaging exam on 02/20/2022 showed a possible finding that requires additional imaging studies for a complete evaluation. Most such findings are probably benign (not cancer). Your mammogram demonstrates that you have dense breast tissue, which could hide abnormalities. Dense breast tissue, in and of itself, is a relatively common condition. Therefore, this information is not provided to cause undue concern; rather, it is to raise your awareness and promote discussion with your health care provider regarding the presence of dense breast tissue in addition to other risk factors. If you have a healthcare provider who ordered/prescribed your screening mammogram: Please call [phone] or [phone]: [phone] to schedule an appointment for your additional imaging (if you have not already done so). If you DO NOT have a healthcare provider (ie you did not have an order/prescription for your screening mammogram): Please call to schedule an appointment for your additional imaging (if you have not already done so). You must have an order/prescription from your physician when calling to schedule your appointment. If your order/prescription is not electronic, you must bring the hard copy with you on the day of your exam to avoid delays. Your imaging studies and reports are kept on file at [facility] as part of your permanent medical record, and are available for your continuing care. Thank you for allowing us to help in meeting your health care needs. Sincerely, Dr. Fuentes Interpreting Radiologist [facility] (Additional imaging) documented in this encounter [facility] 12-26-2021 Miscellaneous Notes Patient given message Please notify pt - urine culture shows no growth. Ruth Elliott APRN.[facility] documented in this encounter [facility] 12-24-2021 Instructions Ruth Elliott APRN.CNP - 12/24/2021 8:05 AM EST Revaree hyaluronic acid suppositories. Calcium and Vitamin D Supplementation (from the National Institutes of Health Office of Dietary Supplements 2011) Calcium 1200 mg daily - 600 mg twice a day if taking supplement and Vit D 800-1000 IU daily Calcium is required by the body for blood vessel, muscle, hormone and nerve functioning. Most of the body's calcium is stored in the bones and teeth where it supports structure and function. Bone is continuously broken down and reformed. When bone breakdown exceeds formation, especially in postmenopausal women, bone loss can increase the risk of osteoporosis and fractures. In addition to low calcium intake, women who smoke, have a family history of osteoporosis, are thin, or , or who take certain medications such as cancer chemotherapy, seizure mediations and steroids are at increased risk of osteoporosis. The calcium requirements in women change with age. The National Institutes of Health (NIH) recommends: 1000mg elemental calcium for premenopausal women age 19-50 1200mg elemental calcium for postmenopausal women and all women over 50 Milk, yogurt, and cheese are rich natural sources of calcium and are the major food contributors in the [place]. For example, 8oz of milk (whole, lowfat or skim) contains about 300mg calcium, 8oz of yogurt contains 415mg. Nondairy sources include salmon and sardines and vegetables, such as Afghan cabbage, kale, and broccoli. Foods fortified with calcium include many fruit juices, tofu and cereals. For more food calcium content information, visit http://ods.od.nih.gov/factsheets /calcium. Calcium supplements come in several different forms. Remember that the recommendations are for millgrams (mg) of elemental calcium which may be less than the total weight of the supplement. The amount of elemental calcium is required to be printed on the label. Calcium carbonate is the least expensive form. It must be taken on a full stomach to be properly absorbed. Some patients may experience gas or constipation. Calcium phosphate and calcium citrate may be taken either with or without food and tend to have less side effects but are generally more expensive. Because of its ability to neutralize stomach acid, calcium carbonate is found in some [id number] antacid products, such as Tums and Rolaids . Depending on its strength, each chewable pill or softchew provides 200 to 400 mg of elemental calcium. The percentage of calcium absorbed depends on the total amount of elemental calcium consumed at one time. Absorption is highest in doses <500mg. So a woman who takes 1,000mg/day of calcium from supplements should split the dose and take 500mg at two separate times during the day. Too much calcium can cause kidney stones, constipation, difficulty absorbing other nutrients and calcium buildup in blood vessels. Women under 50 should not exceed 2500mg/day (2000mg/day for women over 50) of calcium from food and supplements. Excessive alcohol and caffeine intake can inhibit absorption of calcium. Calcium can reduce the absorption of some medications if taken at the same time of day (bisphosphonates, thyroid medication, Phenytoin and other seizure medications, some antibiotics and iron supplements). Vitamin D promotes calcium absorption in the gut and maintains adequate blood levels of calcium and phosphate for normal bone growth and bone remodeling. Vitamin D also helps regulate cell growth as well as nerve, muscle and immune system function. Vitamin D is produced in the skin as a result of ultraviolet sunlight rays and must be altered in the liver and kidney to become its active form. Recommended intake according to the National Institutes of Health is 600 International Units (IU) for girls and women ages 1-70 and 800 IU for women over 70. Very few foods in nature contain vitamin D. The flesh of fatty fish (such as salmon, tuna, and mackerel) and fish liver oils are among the best sources. Small amounts of vitamin D are found in beef liver, cheese, mushrooms and egg yolks. Most people meet at least some of their vitamin D needs through exposure to sunlight. Season, time of day, length of day, cloud cover, smog, skin melanin content, and sunscreen are among the factors that affect UV radiation exposure and vitamin D synthesis. Despite the importance of the sun for vitamin D synthesis, it is prudent to limit exposure of skin to sunlight and avoid tanning beds. UV radiation is a carcinogen responsible for most of the estimated 1.5 million skin cancers that occur annually in the [place]. Lifetime cumulative UV damage to skin is also responsible for some age-associated dryness and other cosmetic changes. In supplements and fortified foods, vitamin D is available in two forms, D2 (ergocalciferol) and D3 (cholecalciferol). The two are equivalent at normal supplement doses. For women who require high supplement doses because of vitamin D deficiency, D3 may work better to raise blood levels. Some medications can prevent proper absorption of Vitamin D. These include laxatives, corticosteroids like prednisone, the seizure drugs phenobarbital and phenytoin, the weight-loss drug orlistat ( Xenical and AlliTM) and the cholesterol-lowering drug cholestyramine (Questran , LoCholest , and Prevalite ). Talk to your doctor about adjusting your recommended daily vitamin D dosage if you take these medications. You should not exceed 4000 mg of vitamin D supplementation daily unless specifically prescribed by your doctor. 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 Thought she may have had kidney stone pain. No right or left sided flank pain. Pain was sharp and shooting, episodes lasted 25 minutes each and occurred 3 times throughout the day. No pain since then. Denies any urinary symptoms - no frequency, urgency or burning. No history of constipation with normal bowel movement. Postmenopausal: Hysterectomy with BSO for HMB HRT use: No. History of abnormal pap: No Last mammogram: 2018 normal History of abnormal mammogram: Yes Breast biopsy Sexually active: Yes - every 4 months or so due to razor blade feeling History of STDS: None Patient concerns for STD exposure: No. Time with current partner: 13 years Pain with intercourse: Yes Postcoital bleeding: Yes, spotting afterward Hot flashes: No Night sweats: No Vaginal dryness: No OB History T1 L1 SAB0 IAB0 Ectopic0 Multiple0 Live Births0 Entertainment Reporter History LMP: Hysterectomy Age at Menarche: Age at First : Age at Menopause: Entertainment Reporter History Comments: Sexual Activity: Yes; Male; Hysterectomy Contraception: Surgical PAST MEDICAL HISTORY Diagnosis Date Coronary artery disease Excessive or frequent menstruation MS (myocardial infarction) (HCC) Mole of skin removed Other forms of migraine Unspecified essential hypertension PAST SURGICAL HISTORY Procedure Laterality Date BREAST BIOPSY CC CORONARY STENT 2010 ASD COLONOSCOPY FLX DX W/COLLJ SPEC WHEN PFRMD 08/14/2011 Colonoscopy COLONOSCOPY FLX DX W/COLLJ SPEC WHEN PFRMD 09/06/2018 Colonoscopy TOTAL ABDOMINAL HYSTERECT W/WO RMVL TUBE OVARY with BSO FAMILY HISTORY Problem Relation Age of Onset Heart Mother Colon Cancer Mother other (Migraine) Mother Cancer Father lymphoma Cancer Maternal Grandmother ovarian Arthritis Sister Rheumatoid other (Migraine) Sister SOCIAL HISTORY Social History Tobacco Use Smoking status: Never Smokeless tobacco: Never Substance Use Topics Alcohol use: No Drug use: No REVIEW OF SYSTEMS Abdomen: No abdominal pain, nausea, vomiting, diarrhea, or constipation. No bloating, early satiety, indigestion, or increased flatulence. Bladder: No dysuria, gross hematuria, urinary frequency, urinary urgency, or incontinence Breast: No breast lumps, nipple d/c, overlying skin changes, redness or skin retraction Allergies and current medication updated:Yes EXAM: BP 138/82 Ht 5' 1 (1.55m) Wt 139 lb (63.1kg) BMI 26.28 kg/(m^2). GENERAL: pleasant, female in no apparent distress HEENT: Normocephalic, atraumatic, mucus membranes moist, and no lesions NECK: Supple, full range of motion, no adenopathy, and thyroid normal DERMATOLOGY: Normal, without lesions, non-icteric, and non-hirsute BREAST: soft, non-tender, symmetric, no dominant mass, normal nipple-areolar complex, no lymphadenopathy, and no nipple discharge CHEST: Normal inspiratory effort ABDOMEN: soft, no masses, and mild tenderness to suprapubic area PELVIC: external genitalia normal, normal Bartholin's glands, urethra, [place]'s glands, no vulvar lesions, physiologic discharge present, normal appearing perineal body and perianal region, cervix surgically absent, + vaginal atrophy with erythema to vaginal pham, loss of rugae and gold colored discharge. BIMANUAL: no adnexal masses, non-tender, and uterus surgically absent RECTOVAGINAL: deferred. NEURO: alert and oriented x3,exam grossly non-focal EXTREMITIES: normal ASSESSMENT/PLAN: 1) Health maintenance: Pap/HPV screening no longer needed Mammogram ordered Nutrition, exercise and routine health maintenance exams reviewed. Calcium/Vitamin D supplementation information provided. Colon cancer screening: up to date with screening 2. Postmenopausal atrophic vaginitis - ICD9: 627.3, ICD10: N95.2 - Discussed treatment - Replens vaginal lubricant, vaginal hyaluronic acid and vaginal estrogen. Prefers Revaree hyaluronic acid vaginal suppositories - use explained. 3. Lower abdominal pain - ICD9: 789.09, ICD10: R10.30 - negative exam. S/p hysterectomy and BSO - UA POC - trace leuks, urine culture 4) Follow up one year or sooner as needed. Needs to follow with PCP for lower abdominal pain - pt agreeable. Ruth Elliott APRN.CNP documented in this encounter [facility] 07-29-2021 History of Presen t illness Narrative CC: Patient presents with: Ear Pain: x6 days bilateral ear pain (LT) ear pain rated 8 Cough: Pt denied SOB, chest pain (neg home covid x3 days) HPI: Krystin Jones is a 60 year old female who presents to the office with complaint of chest congestion, head congestion, cough, nonproductive and ear symptoms for a few days. Symptoms are worsening ear pain on left Associated symptoms includes ear pain. Denies nausea, vomiting and diarrhea. Treatments tried include nothing so far. with no relief of symptoms. Sick contacts: unknown. History of asthma, frequent episodes of bronchitis, chronic bronchitis, bronchiectasis or COPD: No Smoker: No Seasonal/environmental allergies: No The ROS is otherwise negative. The patient's pmh, medications, allergies, and past visits are reviewed. PHYSICAL EXAM: BP 132/84 Pulse 76 Temp 37.3 C (99.2 F) Resp 16 Wt 63.5 kg (140 lb) SpO2 98% BMI 25.61 kg/m General appearance: alert, cooperative, pleasant, in no acute distress Head: Normocephalic Eyes: EOM's intact, conjunctiva pink and moist, no icterus, sclera white, non-injected Ears: Right ear: External ear/canal- Normal, TM - erythematous. Left ear: External ear/canal- Normal, TM - erythematous, bulging Oropharynx:moist without lesions, No erythema, exudates or tonsillar hypertrophy. Heart: Negative. RRR without obvious murmur, gallop, or rubs. No ectopy. Lungs: clear to auscultation, without rales or wheeze, good air exchange PAST MEDICAL HISTORY Diagnosis Date Coronary artery disease Excessive or frequent menstruation MS (myocardial infarction) (HCC) Mole of skin removed Other forms of migraine Unspecified essential hypertension PAST SURGICAL HISTORY Procedure Laterality Date BREAST BIOPSY CC CORONARY STENT 2010 ASD COLONOSCOPY FLX DX W/COLLJ SPEC WHEN PFRMD 08/14/2011 Colonoscopy COLONOSCOPY FLX DX W/COLLJ SPEC WHEN PFRMD 09/06/2018 Colonoscopy TOTAL ABDOMINAL HYSTERECT W/WO RMVL TUBE OVARY with BSO ALLERGIES Compazine [Prochlorperazine Edisylate], Imitrex [Sumatriptan], and Percocet [Oxycodone-Acetaminophen] MEDICATIONS NURTEC ODT 75 mg disintegrating tablet DISSOLVE 1 TABLET BY MOUTH NEEDED FOR MIGRAINE topiramate (TOPAMAX) 50 mg tablet Take 50 mg by mouth twice daily. 1 pill in the morning and 2 pills in the evening clopidogrel (PLAVIX) 75 mg ORAL tablet Take 1 tablet by mouth once daily. aspirin, enteric coated (ADULT LOW DOSE ASPIRIN) 81 mg ORAL EC tablet Take 1 tablet by mouth once daily. pravastatin (PRAVACHOL) 80 mg ORAL tablet Take 1 tablet by mouth once daily. lisinopril (ZESTRIL) 10 mg ORAL tablet Take 40 mg by mouth once daily. amoxicillin (AMOXIL) 875 mg tablet Take 1 tablet by mouth twice daily for 7 days. FAMILY HISTORY Problem Relation Age of Onset Heart Mother Colon Cancer Mother other (Migraine) Mother Cancer Father lymphoma Cancer Maternal Grandmother ovarian Arthritis Sister Rheumatoid other (Migraine) Sister Social History Tobacco Use Smoking status: Never Smoker Smokeless tobacco: Never Used Substance Use Topics Alcohol use: No Drug use: No ASSESSMENT/PLAN: 1. Acute otitis media, left - ICD9: 382.9, ICD10: H66.92 Prescription instructions reviewed with patient as applicable. Amoxicillin bid for 7 days Potential red flag symptoms discussed with the patient. Reviewed appropriate action plan to take if red flag symptoms occur. Patient agreeable to treatment plan. Abbie García APRN.JAQUELINE documented in this encounter [facility] 07-29-2021 Instructions Abbie García APRN.JAQUELINE - 07/29/2021 8:22 AM EDT Ear Infection The inside or outside of your ear can become infected. If your outer ear or ear canal is swollen and infected, you have an outer ear infection. Your ear may itch or be red and swollen. Your ear may hurt or have drainage as well. This infection happens if germs enter your ears and cause a problem. This is more likely to happen if you have a wound in your ear. It can also happen if there is something in your ear or if your ear is wet for a long time. You may have signs a few days after swimming. This is why outer ear infections are often called swimmers ear. Long-term outer ear infections may be caused by: Allergic reaction Skin problems, such as eczema or psoriasis Chronic middle ear infections What care is needed at home? Ask your doctor what you need to do when you go home. Make sure you ask questions if you do not understand what the doctor says. This way you will know what you need to do. Take your drugs as ordered by your doctor. Be sure to treat an infection right away. This will help to keep it from spreading to other parts of your ear. Heat may help ease your ear pain. If your doctor tells you to use heat, put a heating pad or hot water bottle on your ear for no more than 20 minutes at a time. Never go to sleep with a heating pad on as this can cause sue. What follow-up care is needed? Your doctor may ask you to make visits to the office to check on your progress. Be sure to keep these visits. What problems could happen? Very bad infection Hearing problems What can be done to prevent this health problem? Keep your ears dry: Use a bathing cap or ear plugs when swimming. Use a towel to dry your ears when they are wet. Do not swim in dirty or polluted water. Avoid getting soap or other items in your ears. Do not scratch your ears. Do not put swabs or other objects in your ears. When do I need to call the doctor? Signs of infection. These include a fever of 100.4 F (38 C) or higher, chills, very bad sore throat, ear or sinus pain. Signs get worse You feel pain and there is redness of the bone behind your ear Drugs you are taking are not working for you Health problem is not better or you are feeling worse Helpful tips Talk to your doctor to see if there are drops you can use to help prevent the growth of germs. Outer ear infections are not contagious, but need treatment. documented in this encounter [facility] Diagnosis Encounter for gynecological examination with abnormal finding- Primary Routine gynecological examination Lower abdominal pain Abdominal pain, other specified site Postmenopausal atrophic vaginitis Encounter for screening mammogram for breast cancer Dense breast tissue [facility] Diagnosis Migraine with aura and without status migrainosus, not intractable- Primary [facility] Diagnosis Encounter for screening mammogram for breast cancer Dense breast tissue documented in this encounter [facility] note* Diagnosis Abnormal mammogram Abnormal mammogram, unspecified [facility] Diagnosis Encounter for gynecological examination (general) (routine) without abnormal findings- Primary Encounter for screening mammogram for breast cancer Heterogeneously dense tissue of both breasts on mammography Postmenopausal atrophic vaginitis documented in this encounter [facility] for referral (narrative)* Diagnostic Procedure Only (Routine) - Pending Review Specialty Diagnoses / Procedures Referred By Kay t Referred To Contact [facility] Diagnoses Encounter for screening mammogram for breast cancer Dense breast tissue Procedures ROMAN SCREENING W ANABEL SCREENING DIGITAL BREAST TOMOSYNTHESIS BI SCREENING MAMMOGRAPHY BI 2-VIEW BREAST INC CAD Ruth Elliott APRN.SEWER REPAIRER [address] [place] [place] [address] [facility] [address] [place] [address] Referral ID Status Reason Start Date Expiration Date Visits Requested Visits Authorized [id number] Pending Review Auto-Generat ed Referral 12/24/2021 01/23/2023 1 1 [facility] for referral (narrative)* Diagnostic Procedure Only (Routine) - Closed Specialty Diagnoses / Procedures Referred By Kay wang Referred To Contact [facility] Diagnoses Encounter for screening mammogram for breast cancer Dense breast tissue Procedures ROMAN SCREENING W ANABEL SCREENING DIGITAL BREAST TOMOSYNTHESIS BI SCREENING MAMMOGRAPHY BI 2-VIEW BREAST INC CAD Ruth Elliott APRN.SEWER REPAIRER [address] [place] [address] [facility] [address] [place] [address] Referral ID Status Reason Start Date Expiration Date V isits Requested Visits Authorized [id number] Closed Auto-Generate d Referral 12/24/2021 01/23/2023 1 1 [facility] for referral (narrative)* Diagnostic Procedure Only (Routine) - Closed Specialty Diagnoses / Procedures Referred By Kay t Referred To Contact [facility] Diagnoses Abnormal mammogram Procedures US BREAST LTD RT US BREAST UNI REAL TIME WITH IMAGE LIMITED Ruth Elliott APRN.CNP [address] [place] [address] [facility] [address] [place] [address] Referral ID Status Reason Start Date Expiration Date V isits Requested Visits Authorized [id number] Closed Auto-Generate d Referral 02/24/2022 03/26/2023 1 1 [facility] for referral (narrative)* Diagnostic Procedure Only (Routine) - Pending Review Specialty Diagnoses / Procedures Referred By Kay wang Referred To Contact [facility] Diagnoses Encounter for screening mammogram for breast cancer Heterogeneously dense tissue of both breasts on mammography Procedures ROMAN SCREENING W ANABEL SCREENING DIGITAL BREAST TOMOSYNTHESIS BI SCREENING MAMMOGRAPHY BI 2-VIEW BREAST INC CAD Ruth Elliott APRN.SEWER REPAIRER [address] [place] [address] [facility] [address] [place] [address] Referral ID Status Reason Start Date Expiration Date Visits Requested Visits Authorized [id number] Pending Review Auto-Generat ed Referral 01/29/2024 1 1 [facility] for visit Narrative* Diagnostic Procedure Only (Routine) - Closed Specialty Diagnoses / Procedures Referred By Kay wang Referred To Contact [facility] Diagnoses Encounter for screening mammogram for breast cancer Dense breast tissue Procedures ROMAN SCREENING W ANABEL SCREENING DIGITAL BREAST TOMOSYNTHESIS BI SCREENING MAMMOGRAPHY BI 2-VIEW BREAST INC Ruth Mayer APRN.SEWER REPAIRER [address] [place] [address] [facility] [address] [place] [address] Referral ID Status Reason Start Date Expiration Date V isits Requested Visits Authorized [id number] Closed Auto-Generate d Referral 12/24/2021 01/23/2023 1 1 [facility] Advance Directives No Advanced Directives Records FoundDocuments on File Type Date Recorded 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 Advance Directive(s) 09/06/2018 5:49 AM Summary Purpose Family History No Family History Records FoundNo Family History Records Found Additional Source Comments Source Comments (unrecognize d section and content) In the event this informatio n is protected by the Federal Confidentiality of Alcohol and Drug Abuse Patient Records regulations: The Federal rules restrict any use of the information to criminally investigate or prosecute any alcohol or drug abuse patient.[facility] the event this information is protected by the Federal Confidentiality of Alcohol and Drug Abuse Patient Records regulations: The Federal rules restrict any use of the information to criminally investigate or prosecute any alcohol or drug abuse patient.[facility] the event this information is protected by the Federal Confidentiality of Alcohol and Drug Abuse Patient Records regulations: The Federal rules restrict any use of the information to criminally investigate or prosecute any alcohol or drug abuse patient.[facility] the event this information is protected by the Federal Confidentiality of Alcohol and Drug Abuse Patient Records regulations: The Federal rules restrict any use of the information to criminally investigate or prosecute any alcohol or drug abuse patient.[facility] the event this information is protected by the Federal Confidentiality of Alcohol and Drug Abuse Patient Records regulations: The Federal rules restrict any use of the information to criminally investigate or prosecute any alcohol or drug abuse patient.[facility] the event this information is protected by the Federal Confidentiality of Alcohol and Drug Abuse Patient Records regulations: The Federal rules restrict any use of the information to criminally investigate or prosecute any alcohol or drug abuse patient.[facility] the event this information is protected by the Federal Confidentiality of Alcohol and Drug Abuse Patient Records regulations: The Federal rules restrict any use of the information to criminally investigate or prosecute any alcohol or drug abuse patient.[facility] the event this information is protected by the Federal Confidentiality of Alcohol and Drug Abuse Patient Records regulations: The Federal rules restrict any use of the information to criminally investigate or prosecute any alcohol or drug abuse patient.[facility] Reason for Visit (unrecogniz ed section and content) Reason Comments Well Woman Reason Comments Results Reason Comments Mammogram Result Call Back Reason Comments Med Refill Reason Comments Follow-up Migraine Reason Comments Radiology US Specialty Diagnoses / Procedures Referred By Contac t Referred To Contact [facility] Diagnoses Abnormal mammogram Procedures US BREAST LTD RT US BREAST UNI REAL TIME WITH IMAGE LIMITED Ruth Elliott, CERTIFIED COURT INTERPRETER.SEWER REPAIRER [address] [place] [address] [facility] [address] [place] [address] Referral ID Status Reason Start Date Expiration Date V isits Requested Visits Authorized [id number] Closed Auto-Generate d Referral 02/24/2022 03/26/2023 1 1 Care Teams (unrecognized sec tion and content) Produce Specialist Relationship Specialty Start Date End Date Jeanette LuoDO [address] [address] PCP - General Family Medicine 04/12/16 Produce Specialist Relationship Specialty Start Date End Date Valerio Jeanette ZelayaDO [address] [address] PCP - General Family Medicine 04/12/16 Produce Specialist Relationship Specialty Start Date End Date Valerio Jeanette Zelaya [address] [place] [address] PCP - General Family Medicine 04/12/16 Produce Specialist Relationship Specialty Start Date End Date ValerioJeanette DO [address] [place], [place] [id number] PCP - [facility] 04/12/16 Produce Specialist Relationship Specialty Start Date End Date Jeanette Luo [address] [place] [address] PCP [facility] 10/01/21 Produce Specialist Relationship Specialty Start Date End Date Jeanette Luo [address] [place], [place] [address] [facility] 10/01/21 Produce Specialist Relationship Specialty Start Date End Date Jeanette Luo DO [address] [place] [address] PCP - [facility] 04/12/16 Produce Specialist Relationship Specialty Start Date End Date Jeanette Luo DO [address] [place] [address] PCP - [facility] 04/12/16 Produce Specialist Relationship Specialty Start Date End Date Jeanette Luo DO [address] [place] [address] PCP - [facility] 04/12/16 INFORMATION SOURCE (unrecogn ized section and content) DATE CREATED AUTHOR AUTHOR'S ORGANIZ ATION 12/31/2022 [facility] FOR RECORDS PERTAINING TO PATIENTS WHO ARE OR HAVE BEEN ENROLLED IN A CHEMICAL DEPENDENCY/SUBSTANCEABUSE PROGRAM, SOME INFORMATION MAY BE OMITTED. This clinical summary was aggregated from multiple sources. Caution should be exercised in using it in the provision of clinical care. This summary normalizes information from multiple sources, and as a consequence, information in this document may materially change the coding, format and clinical context of patient data. In addition, data may be omitted in some cases. CLINICAL DECISIONS SHOULD BE BASED ON THE PRIMARY CLINICAL RECORDS. [facility]. provides no warranty or guarantee of the accuracy or completeness of information in this document.
== END | disposition home or self-care (01) ==
PROVIDERS: PCP Family Medicine; Referring Provider Physician Assistant Surgical; Visit Provider Physician Assistant Surgical
DX: R30.0 Dysuria (principal)
CPT/HCPCS: 81001; 87086

== ENCOUNTER → 2023-04-01 | Outpatient (CLI) | payer BC, SELFPAY ==
--- NOTE | 2023-04-01 16:48 | RAD_ITS ---
STUDY: X-RAY - ABDOMEN/PELVIS REASON FOR EXAM: Female, 62 years old. lower abdominal pain TECHNIQUE: Single AP view of the abdomen / pelvis. COMPARISON: CT scan 02/14/2022. FINDINGS: Normal visualized lung bases. There is moderate fecal retention, otherwise unremarkable bowel gas pattern. There is no demonstrated free abdominal air. The visualized liver, spleen and kidneys are grossly normal in size and morphology. Normal soft tissue structures. Normal visualized osseous structures. RAD/Abdomen Single View IMPRESSION: Moderate fecal retention, otherwise negative. Electronically Signed: Jason Iniguez MD at 16:54 EST ,
[2023-04-01 17:43] LABS: Absolute Lymphocyte Count 1.54 X10^3/uL (0.83-4.51); Absolute Neutrophil Count 3.3 X10^3/uL (2.0-7.7); Basophil# 0.04 X10^3/uL; Basophil% 0.7 % (0-1); Eosinophil# 0.11 X10^3/uL; Hematocrit 42.2 % (37-47); Lymphocyte # 1.54 X10^3/ul (0.83-4.51); Lymphocyte % 28.4 % (19-41); Mean Corp Hgb Conc 33.2 g/dL (32-36); Mean Corpuscular Hgb 31.5 pg (27.0-32.0); Mean Platelet Vol. 9.6 fl (6.2-12.0); Monocyte# 0.45 X10^3/uL; Monocyte% 8.3 % (0-10); NRBC Flagged by Analyzer 0 % (0-5); Neutrophil # 3.28 X10^3/uL (2.7-7.7); Neutrophil % 60.4 % (47-70); Platelet Count 279 K/mm3 (150-450); RBC Distribution Width CV 12.2 % (11.6-14.6); RBC Distribution Width SD 42.7 fl (35.1-43.9); Red Blood Count 4.44 M/mm3 (4.2-5.4); White Blood Count 5.4 K/mm3 (4.4-11.0)
[2023-04-01 17:45] LABS: Erythrocyte Sedimentation Rate 6 mm/hr (0-30)
[2023-04-01 18:02] LABS: ALB/GLOB Ratio 1.4 RATIO (0.9-2.4); AST(SGOT) 17 U/L (15-37); Alanine Aminotransfer ALT/SGPT 23 U/L (13-56); Albumin, Serum 4.4 g/dL (3.2-5.0); Alkaline Phosphatase 90 U/L (45-117); Anion Gap 3 (5-15); BUN 10 mg/dL (7-18); BUN/Creat Ratio 14.5 RATIO (10-20); CRP < 2.90 mg/L (0.0-3.0); Calcium,Total 9.6 mg/dL (8.5-10.1); Chloride 113 mmol/L (98-107); Creatinine, Serum 0.69 mg/dL (0.55-1.02); EST Glomerular Filtration Rate 91 mL/min (>60); Est Glom Filt Rate - Afr Amer 110 mL/min (>60); Globulin 3.1 g/dL (2.2-4.2); Glucose 90 mg/dL (74-106); Potassium 3.4 mmol/L (3.5-5.1); Protein, Total 7.5 g/dL (6.4-8.2); Sodium Level 144 mmol/L (136-145)
== END | disposition home or self-care (01) ==
LOC: MTLAB 16:45
PROVIDERS: PCP Family Medicine; Referring Provider Nurse Practitioner Family; Visit Provider Nurse Practitioner Family
DX: R10.30 Lower abdominal pain, unspecified (principal)
CPT/HCPCS: 36415; 74018; 80053; 85025; 85652; 86140

== ENCOUNTER → 2023-05-20 | Outpatient (CLI) | payer BC, SELFPAY ==
--- NOTE | 2023-05-20 18:04 | STRESSREP ---
Stress Test Report Exercise myocardial perfusion stress test. 62-year-old lady with a history of chest pain Stress protocol: Resting EKG demonstrates normal sinus rhythm with a rate of 64 bpm resting blood pressure is 138/82 mmHg. The patient exercised according to the regular Quentin protocol for a total duration of 5 minutes attaining a maximum heart rate of 155 bpm which was 98% of maximum predicted heart rate; the maximum workload was 7 metabolic equivalents. At rest there were no ST or T wave changes noted to suggest ischemia and at peak exercise upsloping ST changes only were noted which did not meet the criteria for ischemia. No clinical angina was noted the test was terminated due to the target heart rate being achieved/fatigue. The peak blood pressure was 160/72 mmHg. Rate-pressure product was 24,800. Myocardial perfusion protocol. 11.6 mCi of technetium 99m sestamibi was injected at rest. The patient exercised according to regular Quentin protocol for total duration of 5 minutes and at peak exercise 34.5 mCi of technetium 99m sestamibi was injected stress images were obtained stress and rest images were reconstructed in comparing the short axis vertical long and horizontal long axis. Gated images were also obtained. Perfusion SPECT analysis: Review of the stress images demonstrate normal uptake of tracer noted in all areas of the myocardium. The resting images similarly demonstrate normal uptake of tracer noted in all areas of the myocardium. No areas of reversibility are noted to suggest ischemia no previous infarct was noted. Gated SPECT analysis: The gated ejection fraction is 80%. Conclusion: Normal exercise myocardial perfusion stress test at a moderate workload Preserved ejection fraction.
== END | disposition home or self-care (01) ==
LOC: CVS 06:03
PROVIDERS: PCP Family Medicine; Referring Provider Physician Assistant Medical; Visit Provider Physician Assistant Medical
DX: R53.83 Other fatigue (principal); I10 Essential (primary) hypertension; Z95.5 Presence of coronary angioplasty implant and graft
CPT/HCPCS: 78452; 93017; A9500; A4216

== ENCOUNTER → 2024-06-23 | Outpatient (CLI) | payer BC, SELFPAY ==
[2024-06-23 07:48] LABS: AST(SGOT) 25 U/L (<=31); Alanine Aminotransfer ALT/SGPT 20 U/L (<=34); Albumin, Serum 4.6 g/dL (3.4-4.8); Alkaline Phosphatase 88 U/L (35-104); Bilirubin, Direct 0.41 mg/dL (0.00-0.30); Cholesterol 141 mg/dL (<=200); Globulin 2.4 g/dL (2.2-4.2); High Density Lipoprotein 67 mg/dL; Low Density Lipoprotein Calc. 60 mg/dL; Protein, Total 6.9 g/dL (5.9-8.4); Total Bilirubin 0.92 mg/dL (0.00-1.30); Triglycerides 68 mg/dL; Very Low Density Lipoprotein 14 mg/dL (5-40); cholesterol:hdl ratio screen 2.11
== END | disposition home or self-care (01) ==
LOC: LAB 06:22
PROVIDERS: PCP Family Medicine; Referring Provider Physician Assistant Medical; Visit Provider Physician Assistant Medical
DX: E78.00 Pure hypercholesterolemia, unspecified (principal)
CPT/HCPCS: 36415; 80061; 80076